=== PATIENT | female | born 1965 | race Caucasian/White ===

== ENCOUNTER 2017-02-19 13:00 | Outpatient (CLI) | payer MEDICARE, MEDICAID ==
--- NOTE | 2017-02-19 15:51 | RAD ---
CHEST TWO VIEWS: History: Dyspnea. Comparison: 05-07-16 FINDINGS: Cardiac silhouette and pulmonary vasculature unremarkable. Lungs remain hyperinflated with flattenin g of each hemidiaphragm and severe bullous change of each lung. There is no confluent airspace conso lidation, pneumothorax, or pleural fluid evident. IMPRESSION: COPD and other chronic type findings appears table. POS: [facility]
== END 2017-02-19 13:01 | disposition home or self-care (01) ==
LOC: RAD 13:00
PROVIDERS: ATTEND Internal Medicine Critical Care Medicine
DX: R06.00 Dyspnea, unspecified (principal); J44.9 Chronic obstructive pulmonary disease, unspecified
CPT/HCPCS: 71020

== ENCOUNTER 2017-02-27 11:41 | Outpatient (CLI) | payer MEDICARE, MEDICAID ==
[2017-02-27 13:04] LABS: #Eosinphils 0.1 thou/uL (0.0-0.7); #Lymphocytes 1.7 thou/uL (1.20-3.40); #Monocytes 0.5 thou/uL (0.11-0.59); #Neutrophils 2.9 thou/uL (1.40-6.50); %Basophils 0.8 % (0.0-1.0); %Eosinophils 1.4 % (0.0-10.0); %Lymphocytes 32.2 % (21.0-51.0); %Monocytes 8.9 % (0.0-10.0); Hematocrit 44.3 % (36.0-47.0); Mean Platelet Volume 7.6 fL (7.4-10.4); Red Blood Cell (RBC) Count 4.69 mill/uL (4.20-5.40); White Blood Cell (WBC) Count 5.2 thou/uL (4.8-10.8)
[2017-02-27 13:28] LABS: Anion Gap 12 mmol/L (10-20); BUN (Urea Nitrogen) 9 mg/dL (9.8-20.1); Calc. Creatinine Clearance 0 mL/min (70-130); Calcium 9.2 mg/dL (7.8-10.44); Carbon Dioxide 29 mmol/L (22-29); Chloride 104 mmol/L (98-107); Estimated GFR-MDRD 81
== END 2017-02-27 11:42 | disposition home or self-care (01) ==
LOC: LABBT 11:41
PROVIDERS: ATTEND Surgery
DX: Z01.812 Encounter for preprocedural laboratory examination (principal); K42.9 Umbilical hernia without obstruction or gangrene
CPT/HCPCS: 80048; 85025

== ENCOUNTER 2017-02-28 10:30 | Day surgery (SDC) | payer MEDICARE, MEDICAID ==
[2017-02-27 11:57] VITALS: BMI 17.4
[2017-02-28] MEDS ORDERED: Bupivacaine HCl 0.5%/Epinephrine 1:200,000/PF 30 ml Vial ONE (13:02)
[2017-02-28] MEDS ORDERED: Fentanyl 100 MCG/2 ML VIAL ONE ×2 (13:09→14:17)
[2017-02-28] MEDS ORDERED: Midazolam HCl 2 mg/2 ml Vial ONE (13:09)
[2017-02-28] MEDS ORDERED: Lidocaine 2% PF 10 ML AMP (For Epidural Use) ONE (13:31)
[2017-02-28] MEDS ORDERED: Propofol 200 MG/20 ML VIAL ONE (13:31)
[2017-02-28] MEDS ORDERED: Ondansetron HCl/PF 4 MG/2 ML Vial ONE (14:17)
[2017-02-28] MEDS ORDERED: Ondansetron HCl/PF 4 MG/2 ML Vial IVP PRN (14:19)
[2017-02-28] MEDS ORDERED: Promethazine HCl 25 MG/ML VIAL IM/IV PRN (14:19)
[2017-02-28] MEDS ORDERED: Acetaminophen/Codeine 30-300mg Tablet ONE (16:24)
--- NOTE | 2017-02-28 21:12 | OP ---
DATE OF SURGERY: 02/28/2017 PREOPERATIVE DIAGNOSIS: Umbilical hernia. POSTOPERATIVE DIAGNOSIS: Umbilical hernia. PROCEDURE: Umbilical hernia repair with mesh, Ventralex ST small. SURGEON: Jose Angel Linares MD ANESTHESIA: General. ESTIMATED BLOOD LOSS: COMPLICATIONS: None. SPECIMEN: None. FINDINGS: Umbilical hernia. TECHNIQUE: The patient was taken to the operating room. After general anesthetic was obtained, the abdomen was prepped and draped in a sterile fashion. Curved incision was made below the umbilicus. Cautery was used to dissect down to and score the fascia. Umbilical stalk was amputated exposing umbilical defect. The edges of the defect were freshened. The preperitoneal space was bluntly diss ected through the umbilical defect. The Ventralex ST small was brought into the sterile field. The underlay was placed in the preperitoneal space, its tails pulled up laterally against the posterior abdominal wall. U stitch of permanent braided suture was used to sew the tails laterally, superior ly, and inferiorly. The tails were then cut at the level of the mesh. The wound was irrigated. Lo katheryn anesthetic was applied. The umbilical stalk was tacked back down using 3-0 Vicryl. Skin was cl osed with 3-0 Vicryl, 4-0 Monocryl, and Dermabond. The patient went to recovery in stable condition . All instrument counts, needle counts, and lap counts were correct.
== END 2017-02-28 16:32 | disposition home or self-care (01) ==
LOC: SDC 10:30
PROVIDERS: ATTEND Surgery
PROC: 0WUF0JZ Supplement Abdominal Wall with Synthetic Substitute, Open Approach (ICD-10-PCS; principal; 2017-02-28)
DX: K42.9 Umbilical hernia without obstruction or gangrene (principal); J43.9 Emphysema, unspecified; J45.909 Unspecified asthma, uncomplicated; Z79.51 Long term (current) use of inhaled steroids; Z79.890 Hormone replacement therapy; Z79.899 Other long term (current) drug therapy; Z88.5 Allergy status to narcotic agent; Z88.8 Allergy status to other drugs, medicaments and biological substances; Z91.041 Radiographic dye allergy status; Z87.891 Personal history of nicotine dependence
CPT/HCPCS: 96375; J0670; J2001; J2250; J2270; J2405; J2704; J3010

== ENCOUNTER 2017-03-20 15:45 | Emergency (ER) | payer MEDICARE, MEDICAID ==
[2017-03-20 16:31] LABS: #Basophils 0.1 thou/uL (0.0-0.2); #Eosinphils 0.2 thou/uL (0.0-0.7); #Monocytes 0.6 thou/uL (0.11-0.59); #Neutrophils 3.7 thou/uL (1.40-6.50); %Basophils 0.8 % (0.0-1.0); %Eosinophils 3.3 % (0.0-10.0); %Lymphocytes 30.1 % (21.0-51.0); %Monocytes 8.6 % (0.0-10.0); Mean Platelet Volume 7.4 fL (7.4-10.4); White Blood Cell (WBC) Count 6.5 thou/uL (4.8-10.8)
--- NOTE | 2017-03-20 16:35 | RAD ---
PORTABLE CHEST ONE VIEW: 03/20/17 at 3:41 p.m. HISTORY: Chest pain. FINDINGS: Comparison made with exam of 02/19/17. The heart size is normal. Changes of bullous emphysema are again noted. No lobar consolidation, pneu mothorax or pleural effusions are identified. There is flattening of the diaphragm. An old healed fr acture of the left 7th rib is again noted. IMPRESSION: COPD. No acute process. POS: [facility]
[2017-03-20 16:55] LABS: ALT (SGPT) 12 U/L (8-55); AST (SGOT) 18 U/L (5-34); Alkaline Phosphatase 77 U/L (40-150); Anion Gap 12 mmol/L (10-20); BUN (Urea Nitrogen) 15 mg/dL (9.8-20.1); Bilirubin, Total 0.2 mg/dL (0.2-1.2); Calc. Creatinine Clearance 0 mL/min (70-130); Calcium 8.9 mg/dL (7.8-10.44); Carbon Dioxide 26 mmol/L (22-29); Chloride 105 mmol/L (98-107); Estimated GFR-MDRD 86; Protein, Total 6.9 g/dL (6.0-8.3)
[2017-03-20 17:01] LABS: Troponin I Less than 0.010 ng/mL (< 0.028)
[2017-03-20] MEDS ORDERED: methylPREDNISolone Sod Succ/PF 125 MG/2 ML VIAL ONE (17:24)
[2017-03-20] MEDS ORDERED: Water For Inject, Bacteriostat 30 ML ONE (17:25)
[2017-03-20] MEDS ORDERED: Albuterol Sulfate 1.25 MG/3 ML NEB ONE (17:27)
[2017-03-20] MEDS ORDERED: Albuterol Sulfate 2.5 mg/3 ml Neb ONE (17:27)
[2017-03-20] MEDS ORDERED: Albuterol Sulfate 2.5 mg/0.5 ml Neb ONE (17:28)
[2017-03-20] MEDS ORDERED: Ketorolac Tromethamine 30 MG/ML VIAL ONE (17:57)
== END 2017-03-20 18:26 | disposition home or self-care (01) ==
LOC: ERS 15:45
DX: J44.1 Chronic obstructive pulmonary disease with (acute) exacerbation (principal); F41.9 Anxiety disorder, unspecified; Z87.891 Personal history of nicotine dependence
CPT/HCPCS: 36415; 71010; 80053; 82553; 84484; 85025; 85379; 93005; 96374; 96375; J1885; J2930; J7611

== ENCOUNTER 2018-09-10 09:10 | Outpatient (CLI) | payer MEDICARE, MEDICAID ==
--- NOTE | 2018-09-10 09:58 | RAD ---
PA AND LATERAL VIEWS CHEST: Date: 09/10/18 HISTORY: Dyspnea. FINDINGS: Comparison made with exam of 02/19/17. The heart size is normal. The lungs are hyperexpanded with changes of COPD. Bullous change in the karey gs are again seen. Old left-sided rib fracture is redemonstrated. No lobar consolidation, pneumothora mart, or pleural effusions are identified. IMPRESSION: COPD. No acute process. POS: [facility]
== END 2018-09-10 09:11 | disposition home or self-care (01) ==
LOC: RAD 09:10
PROVIDERS: ATTEND Internal Medicine Critical Care Medicine
DX: R06.00 Dyspnea, unspecified (principal); J44.9 Chronic obstructive pulmonary disease, unspecified
CPT/HCPCS: 71046

== ENCOUNTER 2020-04-09 11:51 | Inpatient (IN) | payer MEDICARE, MEDICAID ==
[2020-04-09] MEDS ORDERED: Dexamethasone 10 MG/ML VIAL ONE (12:29)
[2020-04-09] MEDS ORDERED: Morphine 4 MG/ML VIAL ONE (12:51)
[2020-04-09] MEDS ORDERED: Ondansetron PF 4 MG/2 ML Vial ONE (12:51)
[2020-04-09] MEDS ORDERED: Guaifenesin DM 100-10/5 ML UDCUP PO PRN (13:51)
[2020-04-09] MEDS ORDERED: Acetaminophen 650 MG Suppository PR PRN (13:51)
[2020-04-09] MEDS ORDERED: Senokot S 8.6-50 MG TAB PO PRN (13:51)
[2020-04-09] MEDS ORDERED: Acetaminophen 325 MG TAB PO PRN (13:51)
[2020-04-09] MEDS ORDERED: Albuterol Sulfate 2.5 mg/3 ml Neb NEB PRN (14:02)
[2020-04-09 14:14] LABS: Troponin I 0.019 ng/mL (< 0.028)
--- NOTE | 2020-04-09 15:33 | HP ---
PRIMARY CARE PHYSICIAN: Bud Alexandra. CHIEF COMPLAINT: Cough and fever with COVID infection. HISTORY OF PRESENT ILLNESS: This is a 54-year-old white female with longstanding emphysema and asthma, seen by Dr. Drew. She reports that she was in her normal state of health until she started getting some cough and fever on Saturday. She went and got a COVID test, which came back positive. She was doing okay until yesterday when she started to have much worsening shortness of breath, chest tightness, coughing, wheezing, and her oxygen saturations started dropping at home. She got worse today and so went to the [facility] Emergency Room in [place]. There, she was found to be hypoxic into the 70s. She had a fever of 103. The patient had a CT done there, which showed a segmental pulmonary embolism on both sides. She was started on Lovenox. The patient was also noted to be febrile to 103. She was given breathing treatments there and put on oxygen. Her O2 saturations came up into the mid to high 90s. She was transferred here for further care here. She also got a dose of steroids. The patient is feeling much better. Currently, on 3 L nasal cannula. REVIEW OF SYSTEMS: CONSTITUTIONAL: See HPI. EYES: No double vision. She had a little bit of blurred vision since she got sick. ENT: No congestion or sore throat. CARDIOVASCULAR: No chest pain. No palpitations or racing heart. PULMONARY: See HPI. GASTROINTESTINAL: No abdominal pain. She did have significant diarrhea initially with COVID infection. She does start getting some nausea and vomiting. Took some Zofran, which resolved that, but caused her to get plugged up, so she is now constipated. GENITOURINARY: No dysuria or hematuria. MUSCULOSKELETAL: She has chronic arthritis pains especially worsened in her bilateral hands and knuckles since she got COVID. SKIN: No rashes or lesions, she has noted. NEUROLOGIC: No numbness, tingling, or focal weakness. PAST MEDICAL HISTORY: 1. Severe COPD, previously on chronic oxygen therapy at home, though she reports she does not take oxygen at home currently. 2. Reactive airway disease. 3. Diverticulosis with previous diverticulitis. 4. Rectovaginal fistula that eventually healed by itself. PAST SURGICAL HISTORY: 1. Umbilical hernia repair. 2. Lung collapse requiring stitching of lung. 3. Hysterectomy. PAST PSYCHIATRIC HISTORY: Of anxiety. SOCIAL HISTORY: The patient previously smoked cigarettes, quit about 11 years ago. No alcohol or illicit drugs. She lives with a roommate. She is a full code. Should she be incapacitated, her daughter would be her medical decision maker. Her daughter's name is Екатерина Wagner. FAMILY HISTORY: Mother with lung cancer. Father had COPD and esophageal cancer. ALLERGIES: 1. SYMBICORT. 2. VICODIN. 3. IODINE TOPICAL ONLY. 4. XOPENEX. CURRENT MEDICATIONS: 1. Montelukast 10 mg daily. 2. Lyrica 150 mg at bedtime. 3. Benadryl 25 mg daily. 4. Breo Ellipta one puff once a day 200/25 mcg. 5. Albuterol as needed. PHYSICAL EXAMINATION: VITAL SIGNS: Blood pressure 103/60, pulse 64, respirations 20, temperature 97.8, O2 saturation 96% on 2 L nasal cannula. GENERAL: This is a well-developed, well-nourished white female, in no acute distress. HEENT: Pupils are equal, round, and reactive to light. Oropharynx clear without lesions, erythema, or exudate. NECK: Supple. No lymphadenopathy. No thyroid nodules or enlargement. No JVD. HEART: Regular rate and rhythm. No murmurs, rubs, or gallops. LUNGS: With bilateral expiratory wheezes. Decent air movement throughout. No increased work of breathing currently. ABDOMEN: Soft, nontender to palpation. Normoactive bowel sounds. No hepatosplenomegaly or other masses. EXTREMITIES: No clubbing, cyanosis, or edema. Good peripheral pulses. SKIN: No rashes or lesions noted. NEUROLOGIC: The patient moves all extremities equally. No facial droop. PSYCHIATRIC: Alert and oriented x3. Normal mood and affect. LABORATORY DATA: Shows negative lactic acid. Elevated procalcitonin and C-reactive protein. Negative troponin. Negative brain natriuretic peptide. CMP is notable for a potassium of 3.4, calcium 8, total protein of 5.8. The rest was normal. D-dimer was elevated at 1.12. PT and INR were normal. CBC had a white blood cell count of 4.8, normal hemoglobin and hematocrit, platelets were 146. The rest was normal. CTA of the chest done at the outside emergency room shows bilateral segmental pulmonary emboli. There is also spiculated pulmonary nodule in the left upper lobe measuring 1.8 cm. Small focal consolidation within bilateral lower lobes, possibly pneumonia infarct or atelectasis. A 9 mm pulmonary nodule in the right middle lobe and a suggested right breast nodule of 1.2 cm and marked emphysema. ASSESSMENT: 1. Bilateral pulmonary emboli. This is likely due to her COVID infection. We will give full-dose Lovenox and eventually need to be transitioned over to oral anticoagulants. Right now, she is having some hypoxia from it, but no large saddle embolism or anything that would cause cardiac strain. I will watch her on the telemetry floor though due to the pulmonary embolism. 2. COVID-19 infection. The patient now with increased oxygen requirement. We will continue dexamethasone and we will start remdesivir. 3. Chronic obstructive pulmonary disease exacerbation, now with her hypoxia. We will put the patient on nebs and continue steroids. 4. [id number] respiratory failure with hypoxia. We will keep on oxygen for now and wean as tolerated. 5. Gastrointestinal prophylaxis. The patient is on Pepcid twice a day. 6. Deep venous thrombosis prophylaxis. The patient is already on Lovenox. I will go ahead and check an ultrasound of bilateral lower extremities to see if she has a deep venous thrombosis. 7. Spiculated pulmonary nodule, the right lung nodule, I believe is an older nodule, but the spiculated lesion on the left needs to be evaluated by Pulmonology. She may be needing a biopsy once she has gotten over her acute illness. I am consulting Pulmonology on this patient. 8. Code status: The patient is a full code. Should she be incapacitated, her daughter would be her medical decision maker. Job ID: [id number]
[2020-04-09] MEDS ORDERED: Enoxaparin Sodium 60 MG/0.6 ML SYRINGE SC SCH ×2 (15:45→21:00)
[2020-04-09] MEDS ORDERED: Albuterol 200 PUFF (6.7GM INHALER) INH PRN (15:53)
[2020-04-09] MEDS ORDERED: Pharmacy to Dose REMDESIVIR IVPB PRN (20:51)
[2020-04-09] MEDS: Albuterol 200 PUFF (6.7GM INHALER) INH SCH ×2 (21:08→21:14)
[2020-04-09] MEDS: Mometasone 100 MCG/PUFF (1 INHALER) INH SCH (21:13)
[2020-04-09] MEDS: Enoxaparin Sodium 60 MG/0.6 ML SYRINGE SC SCH (21:14)
[2020-04-09] MEDS: Pregabalin 75 MG CAP PO SCH (21:14)
[2020-04-09] MEDS: Famotidine 20 MG TAB PO SCH (21:14)
[2020-04-09] MEDS ORDERED: Acetaminophen/Codeine 30-300mg Tablet PO PRN (21:49)
[2020-04-09] MEDS ORDERED: diphenhydrAMINE 25 MG CAP PO SCH (22:00)
--- NOTE | 2020-04-09 22:32 | CON ---
DATE OF CONSULTATION: 04/09/2020 CHIEF COMPLAINT: COVID pneumonia and pulmonary embolus. HISTORY OF PRESENT ILLNESS: Ms. Clinton is a 54-year-old female followed longitudinally by Dr. James Drew. She has a history of moderate to severe COPD with fairly severe asthma. Her asthma is controlled predominantly with Breo and as needed albuterol, either inhaler or nebulizer. She states the normal trigger to her asthma is infections, although also exposure to chemical agents, perfumes and other strong irritants. She states that she was in her usual state of health until early this week when she developed a cough and fever. She was seen at a local clinic and her COVID test returned positive. Yesterday, she began to note worsening shortness of breath associated with chest tightness as well as ongoing cough, although no sputum. Her oxygen saturations were reportedly as low as 70 and she had fever of 103.2. She presented to [facility] emergency room and following a series of tests, she had a CAT scan of the chest demonstrating bilateral pulmonary emboli at the segmental level. She was placed on Lovenox. She was given breathing treatments and steroids and was transferred to [place] for intensified therapy. The patient denies other COVID symptoms at this time. She is more concerned about her inability to get nebulized therapy than almost anything else. She is also asking for a change in diet from a low-sodium to regular. She denies any pain or asymmetric swelling in her lower extremities. She does not have a past history of DVT or pulmonary embolus. She feels that she is a little less active in the past couple days, but otherwise no known risk factors for pulmonary embolic/DVT. SOCIAL HISTORY: The patient is a 54-year-old female. She quit smoking about 11 years ago. She does not have alcohol history. She reports intolerance to Symbicort (although tolerate Breo), Vicodin, topical iodine, and Xopenex (although she tolerate albuterol). HOME MEDICATIONS: 1. Singulair 10 daily. 2. Lyrica 150 at bedtime. 3. Benadryl 25 daily. 4. Breo 200/25 daily. 5. Albuterol metered-dose inhaler and nebulizer as needed. PAST MEDICAL HISTORY: Remarkable for COPD with a reactive component. She has a history of diverticulosis with bouts of diverticulitis. She has had a spontaneous pneumothorax which required over-sew of the leak. REVIEW OF SYSTEMS: Remarkable as above. PHYSICAL EXAMINATION: VITAL SIGNS: Blood pressure ranging 98/64 to 110/68. She has been afebrile since arrival here. Respiratory rate is 16. Saturation 98 on 2 L nasal cannula. Height 5 feet 2 inches, weight 119 with BMI of 21. GENERAL: She is in only mild distress. She is alert, oriented, and appropriate. HEENT: Shows no icterus. Oropharynx shows no Tata. NECK: Shows no adenopathy or JVD. LUNGS: Quiet terminal wheezes and occasional rhonchi, but no rales or rubs. HEART: Regular rate and rhythm. ABDOMEN: Soft. There is no organomegaly. Bowel sounds are normal. She has no guarding. EXTREMITIES: Show no cyanosis, clubbing, cords, or tenderness. LABORATORY DATA: Here we have a troponin of 0.19. Other lab from [place] is not available to me at this time. I have reviewed the reports of scans, but I have not had the opportunity to see them myself. The patient reports that she has a nodule which was not apparently known before, both in the lung and possibly one in the breast. IMPRESSION: 1. Coronavirus disease pneumonia. 2. Deep venous thrombosis, presumed secondary to coronavirus disease and hypercoagulable state. 3. Chronic obstructive pulmonary disease. 4. History of reactive airways component. 5. Pulmonary nodule. 6. Breast nodule. RECOMMENDATIONS: At this point, I would continue current therapies including full dose anticoagulation with Lovenox. We can then convert her to a novel agent such as Eliquis with expectation that she is going to need this about 4 months. We will provide remdesivir and plasma and supplemental oxygen as needed. With regard to the nodule in the breast and in the lung, I would recommend that the evaluation of these be deferred until she gets out of the hospital and can be coordinated by Dr. Drew in the office. It was certainly be important to repeat the scans and look for comparison over time. The breast would seem to be more likely abnormal at least in the setting of other radiographic findings, although she also has a past smoking history and associated risk of lung cancer. I would not pursue biopsy and evaluation of any of these on this hospitalization. I expect her to be in the hospital for several days with followup in the Pulmonary Clinic with Dr. Drew as discussed above. Thank you for this consultation. Job ID: [id number]
[2020-04-10] MEDS: Albuterol 200 PUFF (6.7GM INHALER) INH SCH ×3 (05:03→17:15)
[2020-04-10 05:38] LABS: #Lymphocytes 0.7 thou/uL (1.20-3.40); #Monocytes 0.4 thou/uL (0.11-0.59); %Eosinophils 0.1 % (0.0-10.0); %Lymphocytes 21.4 % (21.0-51.0); %Monocytes 12.2 % (0.0-10.0); %Neutrophils 66.3 % (42.0-75.0); Hemoglobin 11.5 g/dL (12.0-16.0); Mean Corpuscular HGB CONC 32.1 g/dL (32.0-36.0); Mean Corpuscular Hemoglobin 29.2 pg (27.0-31.0); Mean Corpuscular Volume 90.9 fL (78.0-98.0); Mean Platelet Volume 9.5 fL (7.4-10.4); Platelet Count 127 thou/uL (130-400); RBC Distribution Width 12.1 % (11.5-14.5); Red Blood Cell (RBC) Count 3.96 mill/uL (4.20-5.40)
[2020-04-10] MEDS ORDERED: Enoxaparin Sodium 60 MG/0.6 ML SYRINGE SC SCH (06:00)
[2020-04-10 06:02] LABS: Anion Gap 11 mmol/L (10-20); BUN (Urea Nitrogen) 10 mg/dL (9.8-20.1); Calc. Creatinine Clearance 83 mL/min (70-130); Calcium 7.7 mg/dL (7.8-10.44); Carbon Dioxide 30 mmol/L (22-29); Chloride 104 mmol/L (98-107); Estimated GFR-MDRD Greater than 90; Glucose 120 mg/dL (70-105); Potassium 4.2 mmol/L (3.5-5.1); Sodium 141 mmol/L (136-145)
[2020-04-10] MEDS: Estradiol 1 MG TAB PO SCH (08:54)
[2020-04-10] MEDS: Mometasone 100 MCG/PUFF (1 INHALER) INH SCH ×2 (08:54→21:05)
[2020-04-10] MEDS: Enoxaparin Sodium 60 MG/0.6 ML SYRINGE SC SCH ×2 (08:54→21:05)
[2020-04-10] MEDS: Famotidine 20 MG TAB PO SCH ×2 (08:55→21:04)
[2020-04-10] MEDS: Dexamethasone 4 MG TAB PO SCH (08:55)
--- NOTE | 2020-04-10 15:33 | PRG ---
DATE OF SERVICE: 04/10/2020 SUBJECTIVE: Ms. Clinton states that she is feeling a little bit better. She is able to take a deeper breath, and fortunately, her dyspnea is controlled with inhalers due to the restriction of nebulizers due to COVID. She has not had any nausea or vomiting. She has had a very rare cough with some dirty sputum, but no objective fever or chills. Remdesivir has not been available due to a shortage in the pharmacy. PHYSICAL EXAMINATION: VITAL SIGNS: Blood pressure 98/56 to as much as 117/64. She is on nasal cannula 1.5 L. She is afebrile. Heart rate is 63, respiratory rate 16, saturation 97%. GENERAL: She is alert, oriented. HEENT: She has no adenopathy or JVD. She has no oral Tata. LUNGS: Show a few rhonchi maneuvers. She is not using accessory muscles. HEART: Regular rate and rhythm. ABDOMEN: Soft. There is no organomegaly. EXTREMITIES: She has no edema. LABORATORY DATA: White count 3000, hemoglobin is 11.5 with hematocrit of 36, and platelet count of 127,000. Chemistry panel includes sodium 141, potassium 4.2, chloride 104, CO2 is 30, BUN 10, and creatinine 0.6. IMPRESSION: 1. COVID pneumonia, relatively stable. She did not receive remdesivir due to pharmacy shortage. 2. Pulmonary embolus, on full-dose Lovenox. She could probably be converted to oral Eliquis or equivalent tomorrow to follow up in the office with Dr. Drew. 3. Severe chronic obstructive pulmonary disease with exacerbation, probably secondary to COVID. 4. History of reactive airways component. 5. Abnormal chest x-ray. I would recommend that she have a followup with Dr. Drew, at which time she can have a repeat scan in comparison to the ones done at outlying facility. Decision can then be made whether it is appropriate to temporarily get her off anticoagulation for biopsy or other procedures. PLAN: We will continue current therapy with expectation of possible conversion to Eliquis tomorrow and discharge to follow up with Dr. Drew. Job ID: [id number]
[2020-04-10] MEDS ORDERED: Benzonatate 100 MG CAP PO SCH (17:00)
--- NOTE | 2020-04-10 17:10 | PDOC.HOSPP ---
- Subjective Encounter Date: 04/10/20 Encounter Time: 12:30 Subjective: Seen for follow-up regarding her on chronic hypoxic respiratory failure. She reports cough. No sputum. - Objective Vital Signs & Weight: Vital Signs (12 hours) Temp Pulse Resp BP Pulse Ox 04/10/20 16:15 97.9 F 67 20 97/57 L 96 04/10/20 11:48 97.1 F L 63 16 98/56 L 97 04/10/20 08:30 96.3 F L 62 24 H 117/64 97 Weight Weight 119 lb 11.2 oz I&O: 04/09/20 04/10/20 04/11/20 06:59 06:59 06:59 Intake Total 240 Output Total 850 Balance -610 Result Diagrams: 04/10/20 04:53 04/10/20 04:53 Additional Labs: Labs and MAR reviewed by me EKG Reviewed by me: Yes (Telemetry shows normal sinus rhythm) Hospitalist ROS - Review of Systems Constitutional: reports: weakness. denies: fever, chills, sweats, malaise Respiratory: reports: cough, dry, SOB with excertion, wheezing. denies: shortness of breath, hemoptysis, pleuritic pain, sputum Genitourinary: denies: dysuria, frequency, incontinence, hematuria, retention - Medication Medications: Active Medications Generic Name Dose Route Start Last Admin Trade Name Freq PRN Reason Stop Dose Admin Acetaminophen 650 mg 04/09/20 13:51 04/09/20 17:27 Acetaminophen 325 Mg Tab PO 650 mg Q4H PRN Administration Headache/Fever/Mild Pain (1-3) Acetaminophen/Codeine Phosphate 1 tab 04/09/20 21:49 04/10/20 00:03 Acetaminophen/Codeine 30-300mg Tablet PO 04/10/20 21:50 1 tab ONE PRN Administration Moderate to Severe Pain (6-10) Albuterol Sulfate 2 puff 04/09/20 19:00 04/10/20 11:51 Albuterol 200 Puff (6.7gm Inhaler) INH 2 puff [id number] SARAH Administration Dexamethasone 6 mg 04/10/20 08:00 04/10/20 08:55 Dexamethasone 4 Mg Tab PO 04/18/20 08:01 6 mg QAM-WM SARAH Administration Enoxaparin Sodium 60 mg 04/09/20 21:00 04/10/20 08:54 Enoxaparin Sodium 60 Mg/0.6 Ml Syringe SC 60 mg BID SARAH Administration Estradiol 1 mg 04/10/20 09:00 04/10/20 08:54 Estradiol 1 Mg Tab PO 1 mg QAM SARAH Administration Famotidine 20 mg 04/09/20 21:00 04/10/20 08:55 Famotidine 20 Mg Tab PO 20 mg BID SARAH Administration Mometasone Furoate 100 mcg 04/09/20 21:00 04/10/20 08:54 Mometasone 100 Mcg/Puff (1 Inhaler) INH 100 mcg BID SARAH Administration Pregabalin 75 mg 04/09/20 21:00 04/09/20 21:14 Pregabalin 75 Mg Cap PO 75 mg QPM SARAH Administration - Exam General Appearance: awake alert Eye: anicteric sclera ENT: moist mucosa Neck: supple Heart: RRR Respiratory: no rales, no ronchi, wheezes Gastrointestinal: soft, non-tender Skin: no rashes Psychiatric: normal affect, normal behavior Hosp A/P (1) Acute on chronic respiratory failure with hypoxia Code(s): J96.21 - ACUTE AND CHRONIC RESPIRATORY FAILURE WITH HYPOXIA Status: Acute (2) COVID-19 virus infection Code(s): U07.1 - COVID-19 Status: Acute (3) Pulmonary embolism Code(s): I26.99 - OTHER PULMONARY EMBOLISM WITHOUT ACUTE COR PULMONALE Status: Acute (4) Pulmonary nodule Code(s): R91.1 - SOLITARY PULMONARY NODULE Status: Acute (5) COPD exacerbation Code(s): J44.1 - CHRONIC OBSTRUCTIVE PULMONARY DISEASE W (ACUTE) EXACERBATION Status: Acute - Plan Continue dexamethasone. Start vitamin C and zinc. Follow inflammatory markers. Remdesivir has been ordered. Continue therapeutic Lovenox for now, switch to novel oral anticoagulants when c linically stable. Tessalon for cough. Continue bronchodilators, oxygen. Further work-up of lung nodule as outpatient.
[2020-04-10] MEDS ORDERED: Ascorbic Acid 500 mg Chewable Tablet PO SCH (17:30)
[2020-04-10] MEDS ORDERED: Zinc Sulfate 220 MG CAP PO SCH (17:30)
[2020-04-10] MEDS: Ondansetron ODT 4 MG TAB PO PRN (18:32)
[2020-04-10] MEDS: Benzonatate 100 MG CAP PO SCH ×2 (21:02→21:05)
[2020-04-10] MEDS: Pregabalin 75 MG CAP PO SCH (21:04)
[2020-04-10] MEDS: Montelukast Sodium 10 mg Tablet PO SCH (21:04)
[2020-04-10] MEDS: Ondansetron PF 4 MG/2 ML Vial IVP PRN (21:06)
[2020-04-10] MEDS: Promethazine HCl 12.5 MG in Sodium Chloride 0.9% 50 ML IVPB PRN (23:35)
[2020-04-11] MEDS: Albuterol 200 PUFF (6.7GM INHALER) INH SCH ×5 (02:01→18:04)
[2020-04-11] MEDS: Famotidine 20 MG TAB PO SCH ×2 (07:28→20:03)
[2020-04-11] MEDS: Ascorbic Acid 500 mg Chewable Tablet PO SCH ×2 (07:28→18:05)
[2020-04-11] MEDS: Zinc Sulfate 220 MG CAP PO SCH ×2 (07:28→16:03)
[2020-04-11] MEDS: Enoxaparin Sodium 60 MG/0.6 ML SYRINGE SC SCH ×2 (07:29→20:03)
[2020-04-11] MEDS: Estradiol 1 MG TAB PO SCH (07:29)
[2020-04-11] MEDS: Dexamethasone 4 MG TAB PO SCH (07:29)
[2020-04-11] MEDS: Mometasone 100 MCG/PUFF (1 INHALER) INH SCH ×2 (07:30→20:03)
[2020-04-11] MEDS: Benzonatate 100 MG CAP PO SCH (07:30)
[2020-04-11 07:38] LABS: #Lymphocytes 0.8 thou/uL (1.20-3.40); #Neutrophils 7.7 thou/uL (1.40-6.50); %Basophils 0.1 % (0.0-1.0); %Lymphocytes 8.3 % (21.0-51.0); %Monocytes 10.4 % (0.0-10.0); %Neutrophils 81.1 % (42.0-75.0); Hemoglobin 12.2 g/dL (12.0-16.0); Mean Corpuscular HGB CONC 32.6 g/dL (32.0-36.0); Mean Corpuscular Hemoglobin 29.7 pg (27.0-31.0); Mean Corpuscular Volume 91.2 fL (78.0-98.0); Mean Platelet Volume 9.1 fL (7.4-10.4); Platelet Count 158 thou/uL (130-400); Red Blood Cell (RBC) Count 4.11 mill/uL (4.20-5.40); White Blood Cell (WBC) Count 9.5 thou/uL (4.8-10.8)
[2020-04-11 08:00] LABS: BUN (Urea Nitrogen) 11 mg/dL (9.8-20.1); CRP (Inflammatory) 1.28 mg/dL (= or < 0.5); Calc. Creatinine Clearance 78 mL/min (70-130); Calcium 7.7 mg/dL (7.8-10.44); Estimated GFR-MDRD 88; Glucose 109 mg/dL (70-105)
[2020-04-11 08:09] LABS: Anion Gap 15 mmol/L (10-20); Carbon Dioxide 34 mmol/L (22-29); Chloride 102 mmol/L (98-107); Potassium 3.6 mmol/L (3.5-5.1); Sodium 147 mmol/L (136-145)
[2020-04-11 09:18] LABS: ALT (SGPT) 21 U/L (8-55); AST (SGOT) 47 U/L (5-34); Albumin 3.2 g/dL (3.5-5.0); Alkaline Phosphatase 53 U/L (40-110); Bilirubin, Direct 0.1 mg/dL (0.1-0.3); Bilirubin, Total 0.2 mg/dL (0.2-1.2); Protein, Total 5.6 g/dL (6.0-8.3)
--- NOTE | 2020-04-11 11:40 | PRG ---
DATE OF SERVICE: 04/11/2020 SUBJECTIVE: The patient is still having issues with COVID infection, mainly complaining of shortness of breath and inability to use nebulizer treatments. OBJECTIVE: VITAL SIGNS: Temperature 98.6, pulse 68, respirations 16, O2 saturation 97% on 2 L, blood pressure 99/54. HEENT: Unremarkable. NECK: No adenopathy or JVD. CHEST: Clear with a few crackles in the bases. CARDIAC: S1, S2. Regular. ABDOMEN: Soft. EXTREMITIES: No edema. ASSESSMENT: 1. COVID-19 pneumonia. 2. Pulmonary embolism. PLAN: 1. Add spacer for metered-dose inhalers in the past. 2. Continue with dexamethasone and anticoagulation. Job ID: [id number]
--- NOTE | 2020-04-11 12:41 | PDOC.HOSPP ---
- Subjective Encounter Date: 04/11/20 Encounter Time: 08:00 Subjective: Patient seen for follow-up regarding hypoxic respiratory failure. She reports feeling better, but had nausea. Nausea responded well to Phenergan. She does not want to use Tessalon or zinc. - Objective Vital Signs & Weight: Vital Signs (12 hours) Temp Pulse Resp BP BP Pulse Ox 04/11/20 07:43 98.6 F 68 16 99/54 L 97 04/11/20 04:20 97.8 F 75 20 98/54 L 93 L Weight Admit Weight 119 lb 11.2 oz Weight 119 lb 11.2 oz I&O: 04/10/20 04/11/20 04/12/20 06:59 06:59 06:59 Intake Total 240 1430 Output Total 850 500 Balance -610 930 Result Diagrams: 04/11/20 07:17 04/11/20 07:17 Additional Labs: Accuchecks 04/10/20 21:27 POC Glucose 113 H I reviewed patient's labs and MAR EKG Reviewed by me: Yes (Normal sinus rhythm on telemetry) Hospitalist ROS - Review of Systems Constitutional: reports: weakness. denies: fever, chills, sweats, malaise Respiratory: reports: cough, dry. denies: shortness of breath, hemoptysis, SOB with excertion, pleuritic pain, sputum, wheezing Cardiovascular: denies: chest pain, palpitations, orthopnea, paroxysmal noc. dyspnea, edema, light headedness - Medication Medications: Active Medications Generic Name Dose Route Start Last Admin Trade Name Freq PRN Reason Stop Dose Admin Acetaminophen 650 mg 04/09/20 13:51 04/09/20 17:27 Acetaminophen 325 Mg Tab PO 650 mg Q4H PRN Administration Headache/Fever/Mild Pain (1-3) Albuterol Sulfate 2 puff 04/09/20 19:00 04/11/20 12:33 Albuterol 200 Puff (6.7gm Inhaler) INH 2 puff [id number] SAARH Administration Ascorbic Acid 1,000 mg 04/11/20 09:00 04/11/20 07:28 Ascorbic Acid 500 Mg Chewable Tablet PO 1,000 mg DAILY SARAH Administration Benzonatate 100 mg 04/10/20 21:00 04/11/20 07:30 Benzonatate 100 Mg Cap PO Not Given TID SARAH Dexamethasone 6 mg 04/10/20 08:00 04/11/20 07:29 Dexamethasone 4 Mg Tab PO 04/18/20 08:01 6 mg QAM-WM SARAH Administration Enoxaparin Sodium 60 mg 04/09/20 21:00 04/11/20 07:29 Enoxaparin Sodium 60 Mg/0.6 Ml Syringe SC 60 mg BID SARAH Administration Estradiol 1 mg 04/10/20 09:00 04/11/20 07:29 Estradiol 1 Mg Tab PO 1 mg QAM SARAH Administration Famotidine 20 mg 04/09/20 21:00 04/11/20 07:28 Famotidine 20 Mg Tab PO 20 mg BID SARAH Administration Promethazine HCl 12.5 mg/ 50.5 mls @ 202 mls/hr 04/10/20 23:01 04/10/20 23:35 Sodium Chloride IVPB 50.5 mls Q6H PRN Administration Nausea/Vomiting Mometasone Furoate 100 mcg 04/09/20 21:00 04/11/20 07:30 Mometasone 100 Mcg/Puff (1 Inhaler) INH 100 mcg BID SARAH Administration Montelukast Sodium 10 mg 04/10/20 21:00 04/10/20 21:04 Montelukast Sodium 10 Mg Tablet PO 10 mg HS SARAH Administration Ondansetron HCl 4 mg 04/09/20 13:51 04/10/20 18:32 Ondansetron Odt 4 Mg Tab PO 4 mg Q6H PRN Administration Nausea/Vomiting Ondansetron HCl 4 mg 04/09/20 13:51 04/10/20 21:06 Ondansetron Pf 4 Mg/2 Ml Vial IVP 4 mg Q6H PRN Administration Nausea/Vomiting Pregabalin 75 mg 04/09/20 21:00 04/10/20 21:04 Pregabalin 75 Mg Cap PO 75 mg QPM SARAH Administration Zinc Sulfate 220 mg 04/11/20 09:00 04/11/20 07:28 Zinc Sulfate 220 Mg Cap PO 220 mg DAILY SARAH Administration - Exam General Appearance: awake alert Eye: anicteric sclera ENT: normocephalic atraumatic, moist mucosa Neck: supple Heart: RRR Respiratory: CTAB Gastrointestinal: soft, non-tender Extremities: no edema Skin: no rashes Psychiatric: normal affect Hosp A/P (1) Acute on chronic respiratory failure with hypoxia Code(s): J96.21 - ACUTE AND CHRONIC RESPIRATORY FAILURE WITH HYPOXIA Status: Acute (2) COVID-19 virus infection Code(s): U07.1 - COVID-19 Status: Acute (3) Pulmonary embolism Code(s): I26.99 - OTHER PULMONARY EMBOLISM WITHOUT ACUTE COR PULMONALE Status: Acute (4) Pulmonary nodule Code(s): R91.1 - SOLITARY PULMONARY NODULE Status: Acute (5) COPD exacerbation Code(s): J44.1 - CHRONIC OBSTRUCTIVE PULMONARY DISEASE W (ACUTE) EXACERBATION Status: Acute - Plan Patient is on dexamethasone and vitamin C. Will follow inflammatory markers. Remdesivir has been ordered, currently on backorder. Continue therapeutic Lovenox for now for pulmonary embolism. Continue bronchodilators, oxygen. Further work-up of lung nodule as outpatient.
[2020-04-11] MEDS: REMDESIVIR (EUA) 200 MG in Sodium Chloride 0.9% 250 ML 210 ML IV SCH ×2 (14:39→16:02)
[2020-04-11] MEDS: Pregabalin 75 MG CAP PO SCH (20:03)
[2020-04-11] MEDS: diphenhydrAMINE 25 MG CAP PO SCH (20:03)
[2020-04-11] MEDS: Montelukast Sodium 10 mg Tablet PO SCH (20:03)
[2020-04-11] MEDS ORDERED: Lorazepam 0.5 MG TAB PO SCH (22:45)
[2020-04-12] MEDS: Albuterol 200 PUFF (6.7GM INHALER) INH SCH ×4 (01:58→17:46)
[2020-04-12] MEDS: Ondansetron PF 4 MG/2 ML Vial IVP PRN (04:57)
[2020-04-12 05:05] LABS: #Lymphocytes 0.9 thou/uL (1.20-3.40); #Neutrophils 5.4 thou/uL (1.40-6.50); %Basophils 0.1 % (0.0-1.0); %Eosinophils 0.1 % (0.0-10.0); %Neutrophils 73.9 % (42.0-75.0); Mean Corpuscular HGB CONC 31.8 g/dL (32.0-36.0); Mean Corpuscular Hemoglobin 28.8 pg (27.0-31.0); Mean Corpuscular Volume 90.9 fL (78.0-98.0); Mean Platelet Volume 9.6 fL (7.4-10.4); Platelet Count 171 thou/uL (130-400); Red Blood Cell (RBC) Count 4.16 mill/uL (4.20-5.40); White Blood Cell (WBC) Count 7.3 thou/uL (4.8-10.8)
[2020-04-12 05:41] LABS: ALT (SGPT) 39 U/L (8-55); AST (SGOT) 77 U/L (5-34); Albumin 3.2 g/dL (3.5-5.0); Alkaline Phosphatase 52 U/L (40-110); Anion Gap 13 mmol/L (10-20); BUN (Urea Nitrogen) 14 mg/dL (9.8-20.1); Bilirubin, Total 0.2 mg/dL (0.2-1.2); Calc. Creatinine Clearance 85 mL/min (70-130); Carbon Dioxide 34 mmol/L (22-29); Chloride 101 mmol/L (98-107); Estimated GFR-MDRD Greater than 90; Globulin 2.4 g/dL (2.4-3.5); Glucose 97 mg/dL (70-105); Potassium 3.8 mmol/L (3.5-5.1); Protein, Total 5.6 g/dL (6.0-8.3); Sodium 144 mmol/L (136-145)
[2020-04-12] MEDS: Promethazine HCl 12.5 MG in Sodium Chloride 0.9% 50 ML IVPB PRN (06:07)
[2020-04-12] MEDS: Enoxaparin Sodium 60 MG/0.6 ML SYRINGE SC SCH ×2 (07:15→21:55)
[2020-04-12] MEDS: Dexamethasone 4 MG TAB PO SCH (07:16)
[2020-04-12] MEDS: Estradiol 1 MG TAB PO SCH (07:16)
[2020-04-12] MEDS: Famotidine 20 MG TAB PO SCH ×2 (07:16→21:55)
[2020-04-12] MEDS: Mometasone 100 MCG/PUFF (1 INHALER) INH SCH ×2 (07:17→22:00)
[2020-04-12] MEDS: Ascorbic Acid 500 mg Chewable Tablet PO SCH (07:58)
[2020-04-12] MEDS ORDERED: Ondansetron PF 4 MG/2 ML Vial IVP SCH (08:15)
[2020-04-12] MEDS ORDERED: Sodium Chloride 0.65% Nasal 44 ML BOT EA NARE PRN (09:35)
[2020-04-12] MEDS ORDERED: diphenhydrAMINE 50 MG/ML VIAL IVP SCH (09:45)
[2020-04-12] MEDS ORDERED: REMDESIVIR (EUA) 100 MG in Sodium Chloride 0.9% 250 ML 230 ML IV SCH (14:00)
[2020-04-12] MEDS: Ondansetron ODT 8 MG TAB SL SCH ×3 (14:15→22:11)
[2020-04-12] MEDS: diphenhydrAMINE 50 MG/ML VIAL IVP PRN (16:19)
--- NOTE | 2020-04-12 16:38 | PDOC.HOSPP ---
- Subjective Encounter Date: 04/12/20 Encounter Time: 08:30 Subjective: Patient seen for follow-up regarding acute hypoxic respiratory failure. She reports severe nausea. She denies fevers or chills. - Objective Vital Signs & Weight: Vital Signs (12 hours) Temp Pulse Resp BP Pulse Ox 04/12/20 12:35 98.6 F 68 16 110/82 96 04/12/20 07:30 97.8 F 64 18 109/63 94 L Weight Admit Weight 119 lb 11.2 oz Weight 119 lb 11.2 oz I&O: 04/11/20 04/12/20 04/13/20 06:59 06:59 06:59 Intake Total 1430 1200 Output Total 500 Balance 930 1200 Result Diagrams: 04/12/20 04:40 04/12/20 04:40 Additional Labs: Labs and MAR reviewed by me EKG Reviewed by me: Yes (Telemetry shows normal sinus rhythm) Hospitalist ROS - Review of Systems Respiratory: reports: cough, dry. denies: shortness of breath, hemoptysis, SOB with excertion, pleuritic pain, sputum, wheezing Gastrointestinal: reports: nausea, other. denies: vomiting, abdominal pain, diarrhea, constipation, melena, hematochezia - Medication Medications: Active Medications Generic Name Dose Route Start Last Admin Trade Name Freq PRN Reason Stop Dose Admin Acetaminophen 650 mg 04/09/20 13:51 04/09/20 17:27 Acetaminophen 325 Mg Tab PO 650 mg Q4H PRN Administration Headache/Fever/Mild Pain (1-3) Albuterol Sulfate 2 puff 04/09/20 19:00 04/12/20 12:56 Albuterol 200 Puff (6.7gm Inhaler) INH 2 puff [id number] SARAH Administration Ascorbic Acid 1,000 mg 04/11/20 09:00 04/12/20 07:58 Ascorbic Acid 500 Mg Chewable Tablet PO Not Given DAILY SARAH Dexamethasone 6 mg 04/10/20 08:00 04/12/20 07:16 Dexamethasone 4 Mg Tab PO 04/18/20 08:01 6 mg QAM-WM SARAH Administration Diphenhydramine HCl 25 mg 04/11/20 21:00 04/11/20 20:03 Diphenhydramine 25 Mg Cap PO 25 mg HS SARAH Administration Diphenhydramine HCl 25 mg 04/12/20 13:56 04/12/20 16:19 Diphenhydramine 50 Mg/Ml Vial IVP 25 mg Q6H PRN Administration Nausea Enoxaparin Sodium 60 mg 04/09/20 21:00 04/12/20 07:15 Enoxaparin Sodium 60 Mg/0.6 Ml Syringe SC 60 mg BID SARAH Administration Estradiol 1 mg 04/10/20 09:00 04/12/20 07:16 Estradiol 1 Mg Tab PO 1 mg QAM SARAH Administration Famotidine 20 mg 04/09/20 21:00 04/12/20 07:16 Famotidine 20 Mg Tab PO 20 mg BID SARAH Administration Promethazine HCl 12.5 mg/ 50.5 mls @ 202 mls/hr 04/10/20 23:01 04/12/20 06:07 Sodium Chloride IVPB 50.5 mls Q6H PRN Administration Nausea/Vomiting Mometasone Furoate 100 mcg 04/09/20 21:00 04/12/20 07:17 Mometasone 100 Mcg/Puff (1 Inhaler) INH 100 mcg BID SARAH Administration Montelukast Sodium 10 mg 04/10/20 21:00 04/11/20 20:03 Montelukast Sodium 10 Mg Tablet PO 10 mg HS SARAH Administration Ondansetron HCl 4 mg 04/09/20 13:51 04/10/20 18:32 Ondansetron Odt 4 Mg Tab PO 4 mg Q6H PRN Administration Nausea/Vomiting Ondansetron HCl 4 mg 04/09/20 13:51 04/12/20 04:57 Ondansetron Pf 4 Mg/2 Ml Vial IVP 4 mg Q6H PRN Administration Nausea/Vomiting Ondansetron HCl 8 mg 04/12/20 13:00 04/12/20 14:15 Ondansetron Odt 8 Mg Tab SL 8 mg QID SARAH Administration Pregabalin 75 mg 04/09/20 21:00 04/11/20 20:03 Pregabalin 75 Mg Cap PO 75 mg QPM SARAH Administration Sodium Chloride 0 ml 04/12/20 09:35 04/12/20 10:21 Sodium Chloride 0.65% Nasal 44 Ml Bot EA NARE 1 spray TID PRN Administration Nasal Congestion - Exam General Appearance: awake alert Eye: anicteric sclera ENT: moist mucosa Neck: supple Heart: RRR Respiratory: CTAB, no wheezes Gastrointestinal: soft, non-tender Psychiatric: normal affect, normal behavior Hosp A/P (1) Acute on chronic respiratory failure with hypoxia Code(s): J96.21 - ACUTE AND CHRONIC RESPIRATORY FAILURE WITH HYPOXIA Status: Acute (2) COVID-19 virus infection Code(s): U07.1 - COVID-19 Status: Acute (3) Pulmonary embolism Code(s): I26.99 - OTHER PULMONARY EMBOLISM WITHOUT ACUTE COR PULMONALE Status: Acute (4) Pulmonary nodule Code(s): R91.1 - SOLITARY PULMONARY NODULE Status: Acute (5) COPD exacerbation Code(s): J44.1 - CHRONIC OBSTRUCTIVE PULMONARY DISEASE W (ACUTE) EXACERBATION Status: Acute - Plan Continue dexamethasone and vitamin C. Will follow inflammatory markers. Patient refused remdesivir because she was worried about nausea. Continue therapeutic Lovenox for pulmonary embolism. Continue bronchodilators, oxygen. Further work-up of lung nodule as outpatient. Patient tried Zofran and Phenergan with minimal relief. She reports that Benadryl works better. We will start patient on as needed Benadryl. Patient reportedly does not use oxygen at home. She may need home oxygen as well as home health at the time of discharge.
[2020-04-12] MEDS: diphenhydrAMINE 25 MG CAP PO SCH ×2 (21:55→23:03)
[2020-04-12] MEDS: Montelukast Sodium 10 mg Tablet PO SCH (21:56)
[2020-04-12] MEDS: Pregabalin 75 MG CAP PO SCH (21:57)
--- NOTE | 2020-04-12 22:53 | CON ---
DATE OF CONSULTATION: 04/12/2020 HISTORY: Keya Clinton is a 54-year-old female. She is followed by me with severe COPD. She quit smoking many years ago and has been amazingly stable considering the severity of her lung disease. She developed symptoms of COVID last week, was diagnosed as having a positive test. Her main complaint now is nausea. I have increased the dose of Zofran today to see if that helps. Phenergan works better, she says. PHYSICAL EXAMINATION: VITAL SIGNS: She is afebrile, heart rate is in the 60s, respiratory rate 16, oximetry is 96% on 1.5 L, and blood pressure 110/82. LUNGS: Clear. HEART: Regular rhythm. ABDOMEN: Soft. IMPRESSION: Persistent COVID symptoms. I suspect the nausea and vomiting are related to COVID. Hopefully, these will resolve soon. She is clinically stable enough where she could be managed at home, if these symptoms do resolve. This is a 50 min visit with greater than 50% of the time spent on the unit with coordination of care. Job ID: [id number] MTDD
[2020-04-13] MEDS: Promethazine HCl 12.5 MG in Sodium Chloride 0.9% 50 ML IVPB PRN (01:05)
[2020-04-13] MEDS: diphenhydrAMINE 50 MG/ML VIAL IVP PRN ×2 (04:59→11:13)
[2020-04-13] MEDS: Albuterol 200 PUFF (6.7GM INHALER) INH SCH ×4 (05:00→18:34)
[2020-04-13 05:36] LABS: Band 1 % (5-11); Hemoglobin 12.7 g/dL (12.0-16.0); Lymphocytes 8 % (21-51); MDiff Complete? YES; Mean Corpuscular HGB CONC 32.6 g/dL (32.0-36.0); Mean Corpuscular Hemoglobin 29.4 pg (27.0-31.0); Mean Corpuscular Volume 90.1 fL (78.0-98.0); Mean Platelet Volume 9.2 fL (7.4-10.4); Monocytes 15 % (0-10); Neutrophil 76 % (42-75); Platelet Count 187 thou/uL (130-400); Platelet Morphology Comment Appears Adequate; RBC Morphology Normal; Red Blood Cell (RBC) Count 4.32 mill/uL (4.20-5.40); White Blood Cell (WBC) Count 7.2 thou/uL (4.8-10.8)
[2020-04-13 05:37] LABS: ALT (SGPT) 127 U/L (8-55); AST (SGOT) 189 U/L (5-34); Albumin 3.3 g/dL (3.5-5.0); Alkaline Phosphatase 58 U/L (40-110); Anion Gap 13 mmol/L (10-20); BUN (Urea Nitrogen) 18 mg/dL (9.8-20.1); Bilirubin, Total 0.3 mg/dL (0.2-1.2); CRP (Inflammatory) 0.71 mg/dL (= or < 0.5); Calc. Creatinine Clearance 74 mL/min (70-130); Calcium 8.3 mg/dL (7.8-10.44); Carbon Dioxide 34 mmol/L (22-29); Chloride 99 mmol/L (98-107); Estimated GFR-MDRD 82; Globulin 2.6 g/dL (2.4-3.5); Glucose 81 mg/dL (70-105); Protein, Total 5.9 g/dL (6.0-8.3); Sodium 142 mmol/L (136-145)
[2020-04-13] MEDS: Ondansetron PF 4 MG/2 ML Vial IVP PRN (06:37)
[2020-04-13] MEDS: Dexamethasone 4 MG TAB PO SCH (08:02)
[2020-04-13] MEDS: Mometasone 100 MCG/PUFF (1 INHALER) INH SCH ×2 (08:02→20:36)
[2020-04-13] MEDS: Enoxaparin Sodium 60 MG/0.6 ML SYRINGE SC SCH ×2 (08:02→20:33)
[2020-04-13] MEDS: Ascorbic Acid 500 mg Chewable Tablet PO SCH (08:03)
[2020-04-13] MEDS: Ondansetron ODT 8 MG TAB SL SCH ×4 (08:03→20:35)
[2020-04-13] MEDS: Famotidine 20 MG TAB PO SCH ×2 (08:03→20:34)
[2020-04-13] MEDS: Estradiol 1 MG TAB PO SCH (08:03)
[2020-04-13] MEDS ORDERED: Dextrose 5 % And 0.9 % NaCl 1,000 ML IV SCH (10:45)
[2020-04-13] MEDS ORDERED: Metoclopramide HCl 10 MG/2 ML VIAL IVP PRN (14:56)
[2020-04-13] MEDS ORDERED: Metoclopramide HCl 10 MG/2 ML VIAL IVP SCH (15:00)
--- NOTE | 2020-04-13 15:12 | PRG ---
DATE OF SERVICE: 04/13/2020 Keya Clinton still has a lot of nausea. She had no fever. She is a little short of breath, but no worse than yesterday. She is afebrile. Heart rate is in the 60s, respiratory rates in the teens, oximetry is 100% on a liter and a half, blood pressure 107/67. She did nausea. She could probably be managed at home. to see if this helps with her nausea. Job ID: [id number]
--- NOTE | 2020-04-13 16:38 | PDOC.HOSPP ---
- Subjective Encounter Date: 04/13/20 Encounter Time: 09:00 Subjective: Patient seen for follow-up regarding hypoxic respiratory failure. Complains of ongoing nausea. Denies chest pain. - Objective Vital Signs & Weight: Vital Signs (12 hours) Temp Pulse Resp BP BP BP BP 04/13/20 15:06 98.5 F 93 17 127/79 04/13/20 13:23 04/13/20 11:30 97.6 F 62 16 107/67 04/13/20 08:18 98.2 F 64 14 103/57 L 04/13/20 08:10 04/13/20 04:50 98.3 F 62 18 109/57 L Pulse Ox 04/13/20 15:06 92 L 04/13/20 13:23 100 04/13/20 11:30 100 04/13/20 08:18 96 04/13/20 08:10 96 04/13/20 04:50 98 Weight Admit Weight 119 lb 11.2 oz Weight 111 lb 4.8 oz I&O: 04/12/20 04/13/20 04/14/20 06:59 06:59 06:59 Intake Total 1200 370 Balance 1200 370 Result Diagrams: 04/13/20 05:01 04/13/20 05:01 Additional Labs: I reviewed patient's labs and MAR EKG Reviewed by me: Yes (Normal sinus rhythm on telemetry) Hospitalist ROS - Review of Systems Cardiovascular: denies: chest pain, palpitations, orthopnea, paroxysmal noc. dyspnea, edema, light headedness Gastrointestinal: reports: nausea Genitourinary: denies: dysuria, frequency, incontinence, hematuria, retention - Medication Medications: Active Medications Generic Name Dose Route Start Last Admin Trade Name Freq PRN Reason Stop Dose Admin Acetaminophen 650 mg 04/09/20 13:51 04/09/20 17:27 Acetaminophen 325 Mg Tab PO 650 mg Q4H PRN Administration Headache/Fever/Mild Pain (1-3) Albuterol Sulfate 2 puff 04/09/20 19:00 04/13/20 12:40 Albuterol 200 Puff (6.7gm Inhaler) INH 2 puff [id number] SARAH Administration Ascorbic Acid 1,000 mg 04/11/20 09:00 04/13/20 08:03 Ascorbic Acid 500 Mg Chewable Tablet PO Not Given DAILY SARAH Dexamethasone 6 mg 04/10/20 08:00 04/13/20 08:02 Dexamethasone 4 Mg Tab PO 04/18/20 08:01 6 mg QAM-WM SARAH Administration Diphenhydramine HCl 25 mg 04/11/20 21:00 04/12/20 23:03 Diphenhydramine 25 Mg Cap PO 25 mg HS SARAH Administration Diphenhydramine HCl 25 mg 04/12/20 13:56 04/13/20 11:13 Diphenhydramine 50 Mg/Ml Vial IVP 25 mg Q6H PRN Administration Nausea Enoxaparin Sodium 60 mg 04/09/20 21:00 04/13/20 08:02 Enoxaparin Sodium 60 Mg/0.6 Ml Syringe SC 60 mg BID SARAH Administration Estradiol 1 mg 04/10/20 09:00 04/13/20 08:03 Estradiol 1 Mg Tab PO 1 mg QAM SARAH Administration Famotidine 20 mg 04/09/20 21:00 04/13/20 08:03 Famotidine 20 Mg Tab PO 20 mg BID SARAH Administration Promethazine HCl 12.5 mg/ 50.5 mls @ 202 mls/hr 04/10/20 23:01 04/13/20 01:05 Sodium Chloride IVPB 50.5 mls Q6H PRN Administration Nausea/Vomiting Metoclopramide HCl 10 mg 04/13/20 15:00 04/13/20 14:58 Metoclopramide Hcl 10 Mg/2 Ml Vial IVP 04/13/20 17:00 10 mg NOW SARAH Administration Mometasone Furoate 100 mcg 04/09/20 21:00 04/13/20 08:02 Mometasone 100 Mcg/Puff (1 Inhaler) INH 100 mcg BID SARAH Administration Montelukast Sodium 10 mg 04/10/20 21:00 04/12/20 21:56 Montelukast Sodium 10 Mg Tablet PO 10 mg HS SARAH Administration Ondansetron HCl 4 mg 04/09/20 13:51 04/10/20 18:32 Ondansetron Odt 4 Mg Tab PO 4 mg Q6H PRN Administration Nausea/Vomiting Ondansetron HCl 4 mg 04/09/20 13:51 04/13/20 06:37 Ondansetron Pf 4 Mg/2 Ml Vial IVP 4 mg Q6H PRN Administration Nausea/Vomiting Ondansetron HCl 8 mg 04/12/20 13:00 04/13/20 12:40 Ondansetron Odt 8 Mg Tab SL 8 mg QID SARAH Administration Pregabalin 75 mg 04/09/20 21:00 04/12/20 21:57 Pregabalin 75 Mg Cap PO 75 mg QPM SARAH Administration Sodium Chloride 0 ml 04/12/20 09:35 04/12/20 10:21 Sodium Chloride 0.65% Nasal 44 Ml Bot EA NARE 1 spray TID PRN Administration Nasal Congestion - Exam General Appearance: awake alert Eye: anicteric sclera ENT: moist mucosa Neck: supple Heart: RRR Respiratory: CTAB Gastrointestinal: soft, non-tender Extremities: no edema Skin: no lesions Musculoskeletal: no muscle wasting Psychiatric: normal affect, normal behavior Hosp A/P (1) Acute on chronic respiratory failure with hypoxia Code(s): J96.21 - ACUTE AND CHRONIC RESPIRATORY FAILURE WITH HYPOXIA Status: Acute (2) COVID-19 virus infection Code(s): U07.1 - COVID-19 Status: Acute (3) Pulmonary embolism Code(s): I26.99 - OTHER PULMONARY EMBOLISM WITHOUT ACUTE COR PULMONALE Status: Acute (4) Pulmonary nodule Code(s): R91.1 - SOLITARY PULMONARY NODULE Status: Acute (5) COPD exacerbation Code(s): J44.1 - CHRONIC OBSTRUCTIVE PULMONARY DISEASE W (ACUTE) EXACERBATION Status: Acute - Plan Continue dexamethasone and vitamin C. Patient refused remdesivir. Trial Reglan for nausea. Continue therapeutic Lovenox for pulmonary embolism. Continue bronchodilators, oxygen. Further work-up of lung nodule as outpatient. Patient may need home oxygen as well as home health at the time of discharge.
[2020-04-13] MEDS: Pregabalin 75 MG CAP PO SCH (20:34)
[2020-04-13] MEDS: diphenhydrAMINE 25 MG CAP PO SCH (20:34)
[2020-04-13] MEDS: Montelukast Sodium 10 mg Tablet PO SCH (20:35)
[2020-04-14] MEDS: Albuterol 200 PUFF (6.7GM INHALER) INH SCH ×5 (01:12→16:52)
[2020-04-14] MEDS: diphenhydrAMINE 50 MG/ML VIAL IVP PRN ×4 (01:12→23:06)
[2020-04-14] MEDS: Ondansetron ODT 4 MG TAB PO PRN (04:47)
[2020-04-14 05:11] LABS: ALT (SGPT) 133 U/L (8-55); AST (SGOT) 116 U/L (5-34); Albumin 3.4 g/dL (3.5-5.0); Alkaline Phosphatase 60 U/L (40-110); Anion Gap 15 mmol/L (10-20); BUN (Urea Nitrogen) 23 mg/dL (9.8-20.1); Bilirubin, Total 0.3 mg/dL (0.2-1.2); Calc. Creatinine Clearance 77 mL/min (70-130); Calcium 8.3 mg/dL (7.8-10.44); Carbon Dioxide 33 mmol/L (22-29); Chloride 100 mmol/L (98-107); Estimated GFR-MDRD Greater than 90; Globulin 2.6 g/dL (2.4-3.5); Glucose 74 mg/dL (70-105); Potassium 3.5 mmol/L (3.5-5.1); Sodium 144 mmol/L (136-145)
[2020-04-14 05:23] LABS: Band 2 % (5-11); Hemoglobin 12.8 g/dL (12.0-16.0); Lymphocytes 22 % (21-51); MDiff Complete? YES; Mean Corpuscular HGB CONC 32.6 g/dL (32.0-36.0); Mean Corpuscular Hemoglobin 29.9 pg (27.0-31.0); Mean Corpuscular Volume 91.9 fL (78.0-98.0); Monocytes 11 % (0-10); Neutrophil 65 % (42-75); Platelet Count 205 thou/uL (130-400); Platelet Morphology Comment Appears Adequate; Red Blood Cell (RBC) Count 4.29 mill/uL (4.20-5.40); White Blood Cell (WBC) Count 5.7 thou/uL (4.8-10.8)
[2020-04-14] MEDS: Enoxaparin Sodium 60 MG/0.6 ML SYRINGE SC SCH (08:14)
[2020-04-14] MEDS: Dexamethasone 4 MG TAB PO SCH (08:14)
[2020-04-14] MEDS: Famotidine 20 MG TAB PO SCH ×2 (08:15→20:01)
[2020-04-14] MEDS: Estradiol 1 MG TAB PO SCH (08:15)
[2020-04-14] MEDS: Mometasone 100 MCG/PUFF (1 INHALER) INH SCH ×2 (08:15→20:03)
[2020-04-14] MEDS: Ondansetron ODT 8 MG TAB SL SCH ×2 (08:15→12:33)
[2020-04-14] MEDS: Ascorbic Acid 500 mg Chewable Tablet PO SCH (08:33)
[2020-04-14 11:16] VITALS: BMI 20.3
[2020-04-14] MEDS ORDERED: diphenhydrAMINE 25 MG CAP PO PRN (11:16)
[2020-04-14] MEDS ORDERED: Ondansetron HCl/PF 8 MG in Sodium Chloride 0.9% 50 ML IVPB PRN (14:28)
[2020-04-14] MEDS ORDERED: Prochlorperazine Edisylate 10 MG in Sodium Chloride 0.9% 50 ML IVPB PRN (14:30)
--- NOTE | 2020-04-14 15:17 | PRG ---
DATE OF SERVICE: 04/14/2020 Keya Clinton still extremely nauseated. I have put in an order for Compazine to see if this helps. The Reglan did not help at all. Remainder of her condition is unchanged. We will continue to follow. she could probably be managed at home with nasal cannula oxygen, nebulizer treatment, steroids, anticoagulants, baby aspirin, vitamin C, and zinc. Job ID: [id number]
--- NOTE | 2020-04-14 16:50 | PDOC.HOSPP ---
- Subjective Encounter Date: 04/14/20 Encounter Time: 08:30 Subjective: Patient seen for follow-up for acute hypoxic respiratory failure. Reports ongoing nausea. Denies fevers or chills. - Objective Vital Signs & Weight: Vital Signs (12 hours) Temp Pulse Resp BP BP Pulse Ox 04/14/20 08:33 97.6 F 88 20 113/73 95 04/14/20 08:31 95 04/14/20 04:50 97.9 F 71 15 100/61 95 Weight Admit Weight 119 lb 11.2 oz Weight 111 lb 4.8 oz I&O: 04/13/20 04/14/20 04/15/20 06:59 06:59 06:59 Intake Total 370 365 60 Balance 370 365 60 Result Diagrams: 04/14/20 04:15 04/14/20 04:15 Additional Labs: Labs and MAR reviewed by me EKG Reviewed by me: Yes (Telemetry shows normal sinus rhythm) Hospitalist ROS - Review of Systems Cardiovascular: denies: chest pain, palpitations, orthopnea, paroxysmal noc. dyspnea, edema, light headedness Gastrointestinal: reports: nausea. denies: vomiting, abdominal pain, diarrhea, constipation, melena, hematochezia - Medication Medications: Active Medications Generic Name Dose Route Start Last Admin Trade Name Freq PRN Reason Stop Dose Admin Acetaminophen 650 mg 04/09/20 13:51 04/09/20 17:27 Acetaminophen 325 Mg Tab PO 650 mg Q4H PRN Administration Headache/Fever/Mild Pain (1-3) Albuterol Sulfate 2 puff 04/09/20 19:00 04/14/20 12:34 Albuterol 200 Puff (6.7gm Inhaler) INH 2 puff [id number] SARAH Administration Ascorbic Acid 1,000 mg 04/11/20 09:00 04/14/20 08:33 Ascorbic Acid 500 Mg Chewable Tablet PO Not Given DAILY SARAH Dexamethasone 6 mg 04/10/20 08:00 04/14/20 08:14 Dexamethasone 4 Mg Tab PO 04/18/20 08:01 6 mg QAM-WM SARAH Administration Diphenhydramine HCl 25 mg 04/11/20 21:00 04/13/20 20:34 Diphenhydramine 25 Mg Cap PO 25 mg HS SARAH Administration Diphenhydramine HCl 25 mg 04/12/20 13:56 04/14/20 10:33 Diphenhydramine 50 Mg/Ml Vial IVP 25 mg Q6H PRN Administration Nausea Enoxaparin Sodium 60 mg 04/09/20 21:00 04/14/20 08:14 Enoxaparin Sodium 60 Mg/0.6 Ml Syringe SC 60 mg BID SARAH Administration Estradiol 1 mg 04/10/20 09:00 04/14/20 08:15 Estradiol 1 Mg Tab PO 1 mg QAM SARAH Administration Famotidine 20 mg 04/09/20 21:00 04/14/20 08:15 Famotidine 20 Mg Tab PO 20 mg BID SARAH Administration Promethazine HCl 12.5 mg/ 50.5 mls @ 202 mls/hr 04/10/20 23:01 04/13/20 01:05 Sodium Chloride IVPB 50.5 mls Q6H PRN Administration Nausea/Vomiting Mometasone Furoate 100 mcg 04/09/20 21:00 04/14/20 08:15 Mometasone 100 Mcg/Puff (1 Inhaler) INH 100 mcg BID SARAH Administration Montelukast Sodium 10 mg 04/10/20 21:00 04/13/20 20:35 Montelukast Sodium 10 Mg Tablet PO 10 mg HS SARAH Administration Ondansetron HCl 4 mg 04/09/20 13:51 04/13/20 06:37 Ondansetron Pf 4 Mg/2 Ml Vial IVP 4 mg Q6H PRN Administration Nausea/Vomiting Pregabalin 75 mg 04/09/20 21:00 04/13/20 20:34 Pregabalin 75 Mg Cap PO 75 mg QPM SARAH Administration Sodium Chloride 0 ml 04/12/20 09:35 04/12/20 10:21 Sodium Chloride 0.65% Nasal 44 Ml Bot EA NARE 1 spray TID PRN Administration Nasal Congestion - Exam General Appearance: awake alert Eye: anicteric sclera ENT: moist mucosa Neck: supple Heart: RRR Respiratory: CTAB Gastrointestinal: soft, non-tender Skin: no rashes Psychiatric: normal affect, normal behavior Hosp A/P (1) Acute on chronic respiratory failure with hypoxia Code(s): J96.21 - ACUTE AND CHRONIC RESPIRATORY FAILURE WITH HYPOXIA Status: Acute (2) COVID-19 virus infection Code(s): U07.1 - COVID-19 Status: Acute (3) Pulmonary embolism Code(s): I26.99 - OTHER PULMONARY EMBOLISM WITHOUT ACUTE COR PULMONALE Status: Acute (4) Pulmonary nodule Code(s): R91.1 - SOLITARY PULMONARY NODULE Status: Acute (5) COPD exacerbation Code(s): J44.1 - CHRONIC OBSTRUCTIVE PULMONARY DISEASE W (ACUTE) EXACERBATION Status: Acute - Plan Continue dexamethasone and vitamin C. Patient refused remdesivir. Administer convalescent plasma. Trial Compazine for nausea. Switch to apixaban for pulmonary embolism. Continue bronchodilators, oxygen. Further work-up of lung nodule as outpatient. Patient may need home oxygen as well as home health at the time of discharge. Like 24 to 48 hours.
[2020-04-14] MEDS: diphenhydrAMINE 25 MG CAP PO SCH (20:01)
[2020-04-14] MEDS: Montelukast Sodium 10 mg Tablet PO SCH (20:01)
[2020-04-14] MEDS: Pregabalin 75 MG CAP PO SCH (20:02)
[2020-04-14] MEDS: Apixaban 5 MG TAB PO SCH (20:02)
[2020-04-15] MEDS: Albuterol 200 PUFF (6.7GM INHALER) INH SCH ×3 (01:36→12:51)
[2020-04-15 05:23] LABS: ALT (SGPT) 107 U/L (8-55); AST (SGOT) 60 U/L (5-34); Albumin 3.5 g/dL (3.5-5.0); Alkaline Phosphatase 56 U/L (40-110); Anion Gap 15 mmol/L (10-20); BUN (Urea Nitrogen) 29 mg/dL (9.8-20.1); Bilirubin, Total 0.3 mg/dL (0.2-1.2); CRP (Inflammatory) 1.95 mg/dL (= or < 0.5); Calc. Creatinine Clearance 79 mL/min (70-130); Calcium 8.5 mg/dL (7.8-10.44); Carbon Dioxide 32 mmol/L (22-29); Chloride 99 mmol/L (98-107); Estimated GFR-MDRD Greater than 90; Globulin 2.6 g/dL (2.4-3.5); Glucose 68 mg/dL (70-105); Potassium 3.4 mmol/L (3.5-5.1); Protein, Total 6.1 g/dL (6.0-8.3); Sodium 143 mmol/L (136-145)
[2020-04-15 05:41] LABS: Band 5 % (5-11); Hemoglobin 12.4 g/dL (12.0-16.0); Lymphocytes 22 % (21-51); MDiff Complete? YES; Mean Corpuscular HGB CONC 32.1 g/dL (32.0-36.0); Mean Corpuscular Hemoglobin 29.1 pg (27.0-31.0); Mean Corpuscular Volume 90.6 fL (78.0-98.0); Mean Platelet Volume 8.7 fL (7.4-10.4); Monocytes 11 % (0-10); Neutrophil 62 % (42-75); Platelet Count 232 thou/uL (130-400); RBC Distribution Width 11.9 % (11.5-14.5); Red Blood Cell (RBC) Count 4.27 mill/uL (4.20-5.40); White Blood Cell (WBC) Count 7.4 thou/uL (4.8-10.8)
[2020-04-15] MEDS: diphenhydrAMINE 50 MG/ML VIAL IVP PRN ×2 (06:04→12:38)
[2020-04-15] MEDS: Dexamethasone 4 MG TAB PO SCH (07:22)
[2020-04-15] MEDS: Apixaban 5 MG TAB PO SCH (07:23)
[2020-04-15] MEDS: Estradiol 1 MG TAB PO SCH (07:23)
[2020-04-15] MEDS: Famotidine 20 MG TAB PO SCH (07:23)
[2020-04-15] MEDS: Mometasone 100 MCG/PUFF (1 INHALER) INH SCH (07:24)
[2020-04-15] MEDS: Ascorbic Acid 500 mg Chewable Tablet PO SCH (07:24)
[2020-04-15 07:36] VITALS: TEMP 97.8
--- NOTE | 2020-04-15 10:24 | PRG ---
DATE OF SERVICE: 04/15/2020 SUBJECTIVE: Keya Clinton actually said improvement of her gas exchange. On room air, she is 92%. For the first time, she slept without nausea. She says the only thing that is working is Benadryl. Remainder of her exam is unchanged. Her abdomen is nontender. IMPRESSION: Nausea secondary to coronavirus disease. CBC is normal today. Electrolytes are unremarkable except for potassium of 3.4. She remains with good gas exchange on room air. She could go home to ride this out at home in my opinion. She should get Eliquis, but I will reduce her dose to 5 mg twice a day. She takes a baby aspirin. She should have a 2-3 weeks taper of prednisone. She should continue with her nebulizer at home and Benadryl for nausea as well as vitamin C. Job ID: [id number]
[2020-04-15] MEDS ORDERED: Potassium Chloride 20 MEQ TAB PO SCH (12:30)
[2020-04-15 13:20] VITALS: BP 125/78
--- NOTE | 2020-04-15 14:06 | PDOC.DS.DS ---
Provider - Provider Date of Admission: 04/09/20 13:22 Date of Discharge: 04/15/20 Admitting Provider: Valeriano Saxena MD Consultations: Pulmonary (Dr. Drew) Primary Care Physician: Jose Angel Linares, Course - Hospital Course Hospital Course: Discharge diagnoses: 1. COVID-19 infection 2. COPD exacerbation 3. Acute hypoxic respiratory failure 4. Bilateral pulmonary emboli 5. Lung nodule, needs work-up as outpatient 6. Hypokalemia 7. Abnormal liver function tests Hospital course: Patient is a pleasant 54-year-old lady who was admitted to the hospital on April 09, 2020 for acute hypoxic respiratory failure secondary to COVID-19 infection and COPD exacerbation. Patient had CT angiogram of the chest at [facility] emergency room in [place], which showed bilateral pulmonary emboli as well as bilateral lung nodules, the nodule in the left lung appears to be new. She was started on dexamethasone and vitamin C. She was also ordered remdesivir but patient refused remdesivir. She was seen by pulmonary and critical care [facility]. She has a new lung nodule that needs further management as outpatient after recovering from her acute illness. I will advise her to follow-up with her primary care provider for the same. On April 14, 2020, she received convalescent plasma. She had severe nausea during this hospitalization, which improved with Benadryl. She also needs to be on 1 and half liters of oxygen. Arrangements are being made for home oxygen. Resuscitation Status: 04/09/20 13:46 Resuscitation Status Routine Resuscitation Status: FULL: Full Resuscitation Discussed with: Patient - Labs Lab Results: 04/15/20 04:47 04/15/20 04:47 Abnormal Lab Results - Last 48 hrs 04/14/20 04:15: Band Neuts % (Manual) 2 L, Monocytes % (Manual) 11 H 04/14/20 04:15: Carbon Dioxide 33 H, BUN 23 H, AST 116 H, ALT 133 H, Albumin 3.4 L 04/15/20 04:47: Potassium 3.4 L, Carbon Dioxide 32 H, BUN 29 H, AST 60 H, ALT 107 H, C-Reactive Protein 1.95 H 04/15/20 04:47: Monocytes % (Manual) 11 H - Physical Exam Vitals: Vital Signs (12 hours) Temp Pulse Resp BP BP Pulse Ox 04/15/20 13:19 84 20 125/78 95 04/15/20 07:36 92 L 04/15/20 07:34 97.8 F 75 20 120/71 95 04/15/20 03:17 98.1 F 56 L 16 102/57 L 96 Weight Admit Weight 119 lb 11.2 oz Weight 111 lb 4.8 oz Physical Exam: The patient was seen and examined on the day of discharge. Patient denies chest pain or shortness of breath. Vital signs are stable. S1 and S2 are heard. Lungs are clear to auscultation bilaterally. Problem - Problem (1) Acute on chronic respiratory failure with hypoxia Code(s): J96.21 - ACUTE AND CHRONIC RESPIRATORY FAILURE WITH HYPOXIA Status: Acute (2) COVID-19 virus infection Code(s): U07.1 - COVID-19 Status: Acute (3) Pulmonary embolism Code(s): I26.99 - OTHER PULMONARY EMBOLISM WITHOUT ACUTE COR PULMONALE Status: Acute (4) Pulmonary nodule Code(s): R91.1 - SOLITARY PULMONARY NODULE Status: Acute (5) COPD exacerbation Code(s): J44.1 - CHRONIC OBSTRUCTIVE PULMONARY DISEASE W (ACUTE) EXACERBATION Status: Acute - Time spent with Patient (mins): 31 Plan - Discharge Medications Prescriptions: diphenhydrAMINE [Benadryl] 25 mg PO Q8HR #20 tab Dexamethasone 6 mg PO DAILY #3 tablet Apixaban [Eliquis] 5 mg PO BID #60 tablet predniSONE 20 mg PO ASDIR #16 tab Ascorbic Acid [Vitamin C] 1,000 mg PO DAILY #30 tablet Home Medications: Medication Instructions Recorded Confirmed Type Montelukast Sodium [Singulair] 10 mg PO QAM 05/02/13 04/09/20 History Budesonide [Pulmicort Neb Solution] 0.5 mg NEB BID 06/16/13 04/09/20 History Albuterol Sulfate [Albuterol 2 puff IH Q6HR PRN 06/01/14 04/09/20 History Sulfate HFA] Pregabalin [Lyrica] 150 mg PO QPM 06/01/14 04/09/20 History Estradiol 1 mg PO QAM 02/27/17 04/09/20 History diphenhydrAMINE [Benadryl] 25 mg PO HS 02/27/17 04/09/20 History Fluticasone/Vilanterol [Breo 1 each IH DAILY 04/09/20 04/09/20 History Ellipta 200-25 Mcg INH] Ipratropium/Albuterol Sulfate 3 ml NEB QID 04/09/20 04/09/20 History [Duoneb] Multivitamin 1 each PO DAILY 04/09/20 04/09/20 History Apixaban [Eliquis] 5 mg PO BID #60 tablet 04/15/20 Rx Ascorbic Acid [Vitamin C] 1,000 mg PO DAILY #30 tablet 04/15/20 Rx Dexamethasone 6 mg PO DAILY #3 tablet 04/15/20 Rx diphenhydrAMINE [Benadryl] 25 mg PO Q8HR #20 tab 04/15/20 Rx predniSONE 20 mg PO ASDIR #16 tab 04/15/20 Rx Allergies: formoterol fumarate [From Symbicort] Allergy (Severe, Verified 04/09/20 15:12) DIFFICULTY BREATHING. "LUNGS JUST CLOSE UP" hydrocodone bitartrate [From Vicodin] Allergy (Severe, Verified 04/09/20 15:12) Hives STATES HAS MEDICINE INDUCED LUPUS. iodine Allergy (Verified 04/09/20 15:12) Swollen Lips FACIAL SWELLING. TOPICAL ONLY levalbuterol HCl [From Xopenex] Allergy (Verified 04/09/20 15:12) DIFFICULTY BREATHING. "LUNGS JUST CLOSE UP" - Discharge Instructions Discharge Instructions:: Follow-up with primary care provider for management of new lung nodule. elementary supervisor prescriptions at [facility] - Follow up Plan Referrals: Jose Angel Linares MD [Primary Care Provider] - (call for appointment ) James Drew MD [Active] - 2-3 Weeks KRISTEL CLIFFORD [ Not on Staff] - 3 Days Disposition: HOME Quality - Care Measures CORE MEASURES:: N/A
[2020-04-21] MEDS ORDERED: Apixaban 5 MG TAB PO SCH (21:00)
== END 2020-04-15 19:19 | disposition home or self-care (01) | DRG 177 ==
LOC: ERS 11:51 → ERHOLD 13:22 → 2SW 15:05
PROVIDERS: ADMIT Emergency Medicine; ATTEND Internal Medicine
PROC: 8E0ZXY6 Isolation (ICD-10-PCS; 2020-04-09)
PROC: XW13325 Transfusion of Convalescent Plasma (Nonautologous) into Peripheral Vein, Percutaneous Approach, New Technology Group 5 (ICD-10-PCS; principal; 2020-04-14)
DX: U07.1 COVID-19 (principal); I26.99 Other pulmonary embolism without acute cor pulmonale; J96.21 Acute and chronic respiratory failure with hypoxia; J12.89 Other viral pneumonia; J44.1 Chronic obstructive pulmonary disease with (acute) exacerbation; J44.0 Chronic obstructive pulmonary disease with (acute) lower respiratory infection; R91.1 Solitary pulmonary nodule; Z98.890 Other specified postprocedural states; Z90.710 Acquired absence of both cervix and uterus; Z87.891 Personal history of nicotine dependence; Z88.6 Allergy status to analgesic agent; Z88.8 Allergy status to other drugs, medicaments and biological substances; Z79.899 Other long term (current) drug therapy; Z79.51 Long term (current) use of inhaled steroids; E87.6 Hypokalemia; R79.89 Other specified abnormal findings of blood chemistry
CPT/HCPCS: 36415; 36416; 36430; 80048; 80053; 80076; 82728; 83615; 84484; 85025; 85379; 86140; 86850; 86900; 86901; 93005; J0780; J1100; J1200; J1650; J2270; J2405; J2550; J2765; J7050; J8540; P9017; Q0162; Q0163

== ENCOUNTER 2020-06-03 12:39 | Outpatient (CLI) | payer MEDICARE, MEDICAID ==
--- NOTE | 2020-06-03 14:00 | ULT ---
EXAM: US Breast Limited Rt PROVIDED CLINICAL HISTORY: Abnormal screening mammogram COMPARISON: Screening mammogram 05/05/2020 FINDINGS: Limited sonographic interrogation was performed of the right breast at the 12:00 position in the [place] on of mammographic concern. There is a 1.6 cm circumscribed anechoic cyst with enhanced through transmission corresponding to the mammogram finding. No concerning sonographic findings are evident. IMPRESSION: Mammogram abnormality corresponds to a simple cyst. No concerning findings are evident. Return to [facility]. BI-RADS 2 -- benign findings
--- NOTE | 2020-06-03 14:02 | ULT ---
EXAM: US Breast Limited Lt PROVIDED CLINICAL HISTORY: Abnormal screening mammogram COMPARISON: Screening mammogram 05/05/2020 FINDINGS: Limited sonographic interrogation of the left breast was performed at the 9:00 position in the region of mammographic concern. There is an oval circumscribed nearly anechoic mass with enhanced through transmission measuring approximately 1 cm. No concerning sonographic findings are evident. IMPRESSION: Simple cyst corresponds to the mammographic finding. No concerning sonographic findings are evident. Return to screening. BI-RADS 2 -- benign findings
== END 2020-06-03 12:40 | disposition home or self-care (01) ==
LOC: BICULT 12:39
PROVIDERS: ATTEND Family Medicine Addiction Medicine
DX: R92.8 Other abnormal and inconclusive findings on diagnostic imaging of breast (principal); N60.01 Solitary cyst of right breast; N60.02 Solitary cyst of left breast

== ENCOUNTER 2020-06-29 10:05 | Outpatient (CLI) | payer MEDICARE, MEDICAID ==
--- NOTE | 2020-06-29 10:55 | CT ---
CT OF THE THORAX WITHOUT IV CONTRAST INDICATION: History of Covid 19 and pulmonary nodules COMPARISON: CTA of the chest dated April 09, [address] of the chest without contrast dated Jan FINDINGS: LUNGS: The area of peripheral airspace groundglass opacity within the right and left lower lobe have intervally resolved. No focal infiltrate is evident. Small pulmonary nodules within the right lower lobe is stable since 2014. Small pulmonary nodule within the right middle lobe is stable since 2014 a nd 9. Severe bullous and centrilobular emphysema is stable. Pleural spaces: Clear Lymph nodes: No pathologically enlarged lymph nodes. Heart and great vessels: There are mild coronary artery and thoracic aortic calcifications. Upper abdomen: Visualized aspects of the upper abdomen appear within normal limits. Osseous structures: No acute osseous abnormality. IMPRESSION: 1. Interval resolution of the peripheral airspace opacities affecting both lower lobes on the compari son outside CT PE examination dated April 09, 2020 consistent with resolved pneumonia. No residual airspace disease is evident. 2. Stable benign pulmonary nodules within the right middle lobe right lower lobe. 3. Stable severe emphysema.
== END 2020-06-29 10:06 | disposition home or self-care (01) ==
LOC: BICCT 10:05
PROVIDERS: ATTEND Internal Medicine Critical Care Medicine
DX: U07.1 COVID-19 (principal); R91.8 Other nonspecific abnormal finding of lung field; J43.9 Emphysema, unspecified
CPT/HCPCS: 71250

== ENCOUNTER 2021-07-24 11:19 | Outpatient (CLI) | payer MEDICARE, MEDICAID | END 2021-07-24 11:20 | disposition home or self-care (01) | LOC: BICMAMMO 11:19 | PROVIDERS: ATTEND Family Medicine Addiction Medicine | DX: Z12.31 Encounter for screening mammogram for malignant neoplasm of breast (principal); Z91.89 Other specified personal risk factors, not elsewhere classified | CPT/HCPCS: 77063; 77067 ==

== ENCOUNTER 2022-01-02 09:40 | Outpatient (CLI) | payer MEDICARE, MEDICAID | END 2022-01-02 09:41 | disposition home or self-care (01) | LOC: RAD 09:40 | PROVIDERS: ATTEND Internal Medicine Critical Care Medicine | DX: R06.00 Dyspnea, unspecified (principal) | CPT/HCPCS: 71046 ==

== ENCOUNTER 2022-02-14 10:15 | Inpatient (IN) | payer MEDICARE, MEDICAID ==
[2022-02-12 13:41] VITALS: BMI 21.4
[2022-02-14] MEDS ORDERED: Bupivacaine 0.25% HCL 30 ML VIAL ONE (11:45)
[2022-02-14] MEDS ORDERED: Midazolam HCl 2 mg/2 ml Vial ONE (11:45)
[2022-02-14] MEDS ORDERED: fentaNYL Citrate/PF 100 MCG/2 ML SYRINGE ONE ×2 (13:07→16:08)
[2022-02-14] MEDS ORDERED: HYDROmorphone 2 MG/ML VIAL ONE (13:08)
[2022-02-14] MEDS ORDERED: ceFOXitin 1 GM VIAL ONE (13:50)
[2022-02-14] MEDS ORDERED: cefOXitin 2 GM VIAL ONE (13:52)
[2022-02-14] MEDS ORDERED: Sodium Chloride 0.9% 100 ML ONE (13:52)
[2022-02-14] MEDS ORDERED: Rocuronium Bromide 10 MG/ML (10ML VIAL) ONE (14:05)
[2022-02-14] MEDS ORDERED: PROPOFOL 200 MG/20 ML VIAL ONE (14:05)
[2022-02-14] MEDS ORDERED: Dexamethasone 20 MG/5 ML VIAL ONE (14:05)
[2022-02-14] MEDS ORDERED: Ondansetron PF 4 MG/2 ML Vial ONE (14:05)
[2022-02-14] MEDS ORDERED: NEOSTIGMINE 3 MG/3 ML SYR 3 MG/3 ML SYRINGE ONE (14:05)
[2022-02-14] MEDS ORDERED: Bupivacaine PF 0.5% 30 ML VIAL ONE (14:05)
[2022-02-14] MEDS ORDERED: Phenylephrine 10 MG/ML VIAL ONE (14:05)
[2022-02-14] MEDS ORDERED: Glycopyrrolate 0.2 MG/ML 5 ML SYRINGE ONE (14:05)
[2022-02-14] MEDS ORDERED: Ketorolac Tromethamine 30 MG/ML VIAL ONE (14:05)
[2022-02-14] MEDS ORDERED: Ondansetron HCl/PF 4 MG/2 ML Vial IVP PRN (16:19)
[2022-02-14] MEDS ORDERED: Zolpidem Tartrate 5 MG TAB PO PRN (16:19)
[2022-02-14] MEDS ORDERED: Promethazine HCl 25 MG/ML VIAL IVPB PRN (16:19)
[2022-02-14] MEDS ORDERED: diphenhydrAMINE 25 MG CAP PO PRN (16:19)
[2022-02-14] MEDS ORDERED: Naloxone HCl 0.4 mg/ml Vial IV PRN (16:19)
[2022-02-14] MEDS ORDERED: diphenhydrAMINE 50 MG/ML VIAL IM PRN (16:19)
[2022-02-14] MEDS ORDERED: HYDROmorphone 10 mg/100 ml CADD IVPB PRN (16:19)
[2022-02-14] MEDS ORDERED: Promethazine HCl 25 MG/ML VIAL IM PRN ×3 (16:19→16:28)
[2022-02-14] MEDS ORDERED: Ondansetron PF 4 MG/2 ML Vial IVP PRN (16:19)
[2022-02-14] MEDS ORDERED: PACU-Morphine 4MG/ML VIAL SLOW IVP PRN (16:20)
[2022-02-14] MEDS ORDERED: HYDROmorphone 2 MG/ML VIAL SLOW IVP PRN (16:20)
[2022-02-14] MEDS ORDERED: hydrALAZINE 20 MG/ML VIAL SLOW IVP PRN (16:28)
[2022-02-14] MEDS ORDERED: Communication Order-Pharmacy FS SCH (16:30)
[2022-02-14] MEDS ORDERED: HYDROmorphone 0.5 MG/0.5 ML SYRINGE ONE ×3 (16:33→16:57)
[2022-02-14] MEDS ORDERED: HYDROmorphone/PF 10 MG in Sodium Chloride 0.9% 99 ML IVPB ONE (16:45)
[2022-02-14] MEDS ORDERED: diphenhydrAMINE 50 MG/ML VIAL ONE (17:21)
[2022-02-14] MEDS ORDERED: Albuterol Sulfate 2.5 mg/3 ml Neb NEB PRN (17:38)
[2022-02-14] MEDS: Budesonide 0.5 MG/2 ML NEB NEB SCH (18:53)
[2022-02-14] MEDS: D5 1/2 NS w/20 mEq KCL 1,000 ML IV SCH (18:54)
[2022-02-14] MEDS: Famotidine 20 MG TAB PO SCH (21:03)
[2022-02-14] MEDS: diphenhydrAMINE 50 MG/ML VIAL IVP PRN (21:03)
[2022-02-14] MEDS: Pregabalin 75 MG CAP PO SCH (21:03)
[2022-02-14] MEDS: Famotidine/PF 20 mg/2ml Vial SLOW IVP SCH (21:09)
[2022-02-14] MEDS: Ondansetron PF 4 MG/2 ML Vial IVP PRN (22:11)
[2022-02-14] MEDS: cefOXitin Sodium 1 GM in Sodium Chloride 0.9% 100 ML IVPB SCH (22:11)
[2022-02-15 05:50] LABS: #Lymphocytes 0.5 thou/uL (1.20-3.40); #Monocytes 1.1 thou/uL (0.11-0.59); #Neutrophils 14.5 thou/uL (1.40-6.50); %Lymphocytes 3.1 % (21.0-51.0); %Neutrophils 89.9 % (42.0-75.0); Hemoglobin 10.9 g/dL (12.0-16.0); Mean Corpuscular HGB CONC 31.3 g/dL (32.0-36.0); Mean Corpuscular Hemoglobin 28.9 pg (27.0-31.0); Mean Corpuscular Volume 92.1 fL (78.0-98.0); Mean Platelet Volume 8.2 fL (7.4-10.4); Platelet Count 245 thou/uL (130-400); RBC Distribution Width 12.4 % (11.5-14.5); Red Blood Cell (RBC) Count 3.78 mill/uL (4.20-5.40); White Blood Cell (WBC) Count 16.2 thou/uL (4.8-10.8)
[2022-02-15 06:05] LABS: Anion Gap 14 mmol/L (10-20); BUN (Urea Nitrogen) 9 mg/dL (9.8-20.1); Calc. Creatinine Clearance 63 mL/min (70-130); Calcium 8.4 mg/dL (7.8-10.44); Carbon Dioxide 22 mmol/L (22-29); Chloride 106 mmol/L (98-107); Estimated GFR 84; Glucose 198 mg/dL (70-105); Potassium 4.5 mmol/L (3.5-5.1); Sodium 137 mmol/L (136-145)
[2022-02-15] MEDS: cefOXitin Sodium 1 GM in Sodium Chloride 0.9% 100 ML IVPB SCH (06:09)
[2022-02-15] MEDS: D5 1/2 NS w/20 mEq KCL 1,000 ML IV SCH ×2 (06:09→16:49)
[2022-02-15] MEDS: Budesonide 0.5 MG/2 ML NEB NEB SCH ×2 (06:39→18:39)
[2022-02-15] MEDS: Famotidine/PF 20 mg/2ml Vial SLOW IVP SCH (08:59)
[2022-02-15] MEDS: Enoxaparin Sodium 40 MG/0.4 ML SYRINGE SC SCH (08:59)
[2022-02-15] MEDS: Famotidine 20 MG TAB PO SCH ×2 (08:59→20:48)
[2022-02-15] MEDS: Montelukast Sodium 10 mg Tablet PO SCH (08:59)
[2022-02-15] MEDS ORDERED: Fluticasone/Vilanterol [Breo Ellipta 200-25 Mcg Inh] INH SCH (09:00)
[2022-02-15] MEDS: Pregabalin 75 MG CAP PO SCH (20:48)
[2022-02-15] MEDS: diphenhydrAMINE 50 MG/ML VIAL IVP PRN (22:12)
[2022-02-16] MEDS: diphenhydrAMINE 50 MG/ML VIAL IVP PRN ×3 (01:17→21:00)
[2022-02-16] MEDS: D5 1/2 NS w/20 mEq KCL 1,000 ML IV SCH ×3 (02:00→20:57)
[2022-02-16] MEDS: Famotidine/PF 20 mg/2ml Vial SLOW IVP SCH ×2 (06:17→10:21)
[2022-02-16] MEDS: Budesonide 0.5 MG/2 ML NEB NEB SCH ×2 (06:32→18:27)
[2022-02-16] MEDS ORDERED: Acetaminophen/Codeine 30-300mg Tablet PO PRN (07:51)
[2022-02-16] MEDS: Montelukast Sodium 10 mg Tablet PO SCH (10:20)
[2022-02-16] MEDS: Estradiol 1 MG TAB PO SCH (10:20)
[2022-02-16] MEDS: Famotidine 20 MG TAB PO SCH ×2 (10:20→20:52)
[2022-02-16] MEDS: Enoxaparin Sodium 40 MG/0.4 ML SYRINGE SC SCH (10:21)
[2022-02-16] MEDS: Morphine 4 MG/ML VIAL SLOW IVP PRN ×2 (12:14→23:36)
[2022-02-16] MEDS: Acetaminophen/Codeine 30-300mg Tablet PO PRN ×2 (14:35→20:07)
[2022-02-16] MEDS ORDERED: Ketorolac Tromethamine 30 MG/ML VIAL ONE (17:49)
[2022-02-16] MEDS: Pregabalin 75 MG CAP PO SCH (20:52)
[2022-02-17] MEDS: diphenhydrAMINE 50 MG/ML VIAL IVP PRN ×3 (01:00→18:40)
[2022-02-17] MEDS: Ondansetron PF 4 MG/2 ML Vial IVP PRN ×3 (01:00→18:12)
[2022-02-17] MEDS: Famotidine/PF 20 mg/2ml Vial SLOW IVP SCH ×3 (03:33→21:52)
[2022-02-17] MEDS: Acetaminophen/Codeine 30-300mg Tablet PO PRN ×2 (04:35→10:57)
[2022-02-17] MEDS: D5 1/2 NS w/20 mEq KCL 1,000 ML IV SCH ×3 (04:36→22:28)
[2022-02-17] MEDS: Budesonide 0.5 MG/2 ML NEB NEB SCH ×3 (06:38→18:42)
[2022-02-17] MEDS: Montelukast Sodium 10 mg Tablet PO SCH (10:58)
[2022-02-17] MEDS: Enoxaparin Sodium 40 MG/0.4 ML SYRINGE SC SCH (10:58)
[2022-02-17] MEDS: Famotidine 20 MG TAB PO SCH ×2 (10:59→21:53)
[2022-02-17] MEDS: Estradiol 1 MG TAB PO SCH (11:02)
[2022-02-17] MEDS ORDERED: Sodium Chloride 0.65% Nasal 44 ML BOT EA NARE PRN ×2 (14:21→16:50)
[2022-02-17] MEDS ORDERED: Fluconazole 100 MG TAB PO SCH (18:30)
[2022-02-17] MEDS: Morphine 4 MG/ML VIAL SLOW IVP PRN (21:52)
[2022-02-17] MEDS: Pregabalin 75 MG CAP PO SCH (21:54)
[2022-02-18] MEDS: Morphine 4 MG/ML VIAL SLOW IVP PRN ×4 (03:04→16:28)
[2022-02-18] MEDS: Ondansetron PF 4 MG/2 ML Vial IVP PRN ×2 (03:05→08:36)
[2022-02-18 06:06] LABS: #Eosinphils 0.4 thou/uL (0.0-0.7); #Lymphocytes 1.4 thou/uL (1.20-3.40); #Monocytes 0.8 thou/uL (0.11-0.59); #Neutrophils 3.5 thou/uL (1.40-6.50); %Basophils 0.6 % (0.0-1.0); %Eosinophils 5.9 % (0.0-10.0); %Lymphocytes 22.9 % (21.0-51.0); %Neutrophils 57.6 % (42.0-75.0); Hemoglobin 8.8 g/dL (12.0-16.0); Mean Corpuscular HGB CONC 31.7 g/dL (32.0-36.0); Mean Corpuscular Hemoglobin 29.7 pg (27.0-31.0); Mean Platelet Volume 8.2 fL (7.4-10.4); Platelet Count 215 thou/uL (130-400); RBC Distribution Width 12.2 % (11.5-14.5); Red Blood Cell (RBC) Count 2.97 mill/uL (4.20-5.40); White Blood Cell (WBC) Count 6.1 thou/uL (4.8-10.8)
[2022-02-18 06:23] LABS: Anion Gap 10 mmol/L (10-20); BUN (Urea Nitrogen) 4 mg/dL (9.8-20.1); Calc. Creatinine Clearance 80 mL/min (70-130); Calcium 7.9 mg/dL (7.8-10.44); Carbon Dioxide 31 mmol/L (22-29); Chloride 105 mmol/L (98-107); Estimated GFR 102; Glucose 109 mg/dL (70-105); Magnesium 1.6 mg/dL (1.6-2.6); Potassium 3.7 mmol/L (3.5-5.1); Sodium 142 mmol/L (136-145)
[2022-02-18] MEDS: Budesonide 0.5 MG/2 ML NEB NEB SCH ×2 (07:29→18:31)
[2022-02-18] MEDS: Estradiol 1 MG TAB PO SCH (08:36)
[2022-02-18] MEDS: Famotidine 20 MG TAB PO SCH ×2 (08:36→20:16)
[2022-02-18] MEDS: Enoxaparin Sodium 40 MG/0.4 ML SYRINGE SC SCH (08:36)
[2022-02-18] MEDS: Montelukast Sodium 10 mg Tablet PO SCH (08:36)
[2022-02-18] MEDS: D5 1/2 NS w/20 mEq KCL 1,000 ML IV SCH ×2 (08:37→20:20)
[2022-02-18] MEDS: Famotidine/PF 20 mg/2ml Vial SLOW IVP SCH ×2 (12:35→20:20)
[2022-02-18] MEDS: Acetaminophen/Codeine 30-300mg Tablet PO PRN (20:15)
[2022-02-18] MEDS: Pregabalin 75 MG CAP PO SCH (20:16)
[2022-02-18] MEDS: diphenhydrAMINE 50 MG/ML VIAL IVP PRN (20:17)
[2022-02-19] MEDS: Acetaminophen/Codeine 30-300mg Tablet PO PRN ×2 (06:14→11:50)
[2022-02-19] MEDS: diphenhydrAMINE 50 MG/ML VIAL IVP PRN ×2 (06:15→11:49)
[2022-02-19] MEDS: Budesonide 0.5 MG/2 ML NEB NEB SCH (07:12)
[2022-02-19] MEDS: D5 1/2 NS w/20 mEq KCL 1,000 ML IV SCH (07:25)
[2022-02-19] MEDS: Enoxaparin Sodium 40 MG/0.4 ML SYRINGE SC SCH (08:45)
[2022-02-19] MEDS: Famotidine 20 MG TAB PO SCH (08:46)
[2022-02-19] MEDS: Estradiol 1 MG TAB PO SCH (08:46)
[2022-02-19] MEDS: Montelukast Sodium 10 mg Tablet PO SCH (08:46)
[2022-02-19] MEDS: Famotidine/PF 20 mg/2ml Vial SLOW IVP SCH (08:46)
[2022-02-19] MEDS ORDERED: Furosemide 20 MG/2 ML VIAL SLOW IVP SCH (12:15)
[2022-02-19 15:57] VITALS: BP 111/65; TEMP 97.4
== END 2022-02-19 15:30 | disposition home or self-care (01) | DRG 330 ==
LOC: SURG A 10:15 → EDSTATUS 13:05 → SJJU 17:48
PROVIDERS: ADMIT Surgery; ATTEND Surgery
PROC: 0DBN0ZZ Excision of Sigmoid Colon, Open Approach (ICD-10-PCS; principal; 2022-02-14)
DX: K57.32 Diverticulitis of large intestine without perforation or abscess without bleeding (principal); N82.3 Fistula of vagina to large intestine; J43.9 Emphysema, unspecified; Z20.822 Contact with and (suspected) exposure to COVID-19; K66.0 Peritoneal adhesions (postprocedural) (postinfection); Z79.899 Other long term (current) drug therapy; Z79.82 Long term (current) use of aspirin; Z79.51 Long term (current) use of inhaled steroids; Z87.891 Personal history of nicotine dependence; Z88.8 Allergy status to other drugs, medicaments and biological substances; Z88.5 Allergy status to narcotic agent; Z90.710 Acquired absence of both cervix and uterus; Z87.440 Personal history of urinary (tract) infections; Z88.6 Allergy status to analgesic agent; Z91.041 Radiographic dye allergy status; Z53.31 Laparoscopic surgical procedure converted to open procedure
CPT/HCPCS: 36415; 36416; 80048; 83735; 85025; 88307; 94640; A4649; J0694; J1100; J1170; J1200; J1650; J1885; J1940; J2250; J2270; J2370; J2405; J2550; J2704; J3480; J3490; J7611; J7620; J7626; S0020; U0003; U0005

== ENCOUNTER 2022-12-31 10:21 | Outpatient (CLI) | payer MEDICARE, MEDICAID | END 2022-12-31 10:22 | disposition home or self-care (01) | LOC: RAD 10:21 | PROVIDERS: ATTEND Internal Medicine Critical Care Medicine | DX: R06.00 Dyspnea, unspecified (principal); J43.8 Other emphysema; J34.89 Other specified disorders of nose and nasal sinuses | CPT/HCPCS: 71046 ==

== ENCOUNTER 2023-08-21 11:16 | Outpatient (CLI) | payer MEDICARE, MEDICAID ==
[2023-08-21 13:07] LABS: Hematocrit 41.7 % (34.9-44.5); Hemoglobin 13.6 g/dL (12.0-15.5); Mean Corpuscular HGB CONC 32.6 g/dL (32.0-36.0); Mean Corpuscular Hemoglobin 29.2 pg (27.0-33.0); Mean Corpuscular Volume 89.5 fl (81.6-98.3); Mean Platelet Volume 10.3 fl (7.4-10.4); Platelet Count 290 10x3/uL (150-450); RBC Distribution Width 13.3 % (11.5-14.5); Red Blood Cell (RBC) Count 4.66 10x6/uL (3.90-5.03); White Blood Cell (WBC) Count 6.1 10x3/uL (3.5-10.5)
[2023-08-21 13:16] LABS: INR-International Normal Ratio 0.9; PTT 29.9 sec (22.0-33.0); Prothrombin Time 9.9 sec (9.5-12.1)
[2023-08-21 13:25] LABS: Anion Gap 14 mmol/L (10-20); BUN (Urea Nitrogen) 16 mg/dL (9.8-20.1); Calc. Creatinine Clearance 0 mL/min (70-130); Calcium 9.2 mg/dL (7.8-10.44); Carbon Dioxide 28 mmol/L (22-29); Chloride 104 mmol/L (98-107); Estimated GFR 87; Glucose 75 mg/dL (70-105); Potassium 3.9 mmol/L (3.5-5.1); Sodium 142 mmol/L (136-145)
[2023-08-21 14:34] LABS: Bilirubin Neg (Negative); Blood, Urine 10 (Negative); Glucose, Urine (Dipstick) Normal (Negative); Ketone, Urine 5 mg/dL (Negative); Leukocyte 25 (Negative); Nitrite Negative (Negative); Protein, Urine (Dipstick) Negative (Neg-Trace); Urobilinogen Normal mg/dL (Less than 2)
[2023-08-21 14:35] LABS: Clarity Slightly Cloudy (Clear)
[2023-08-21 15:22] LABS: Squamous Epithelial 0-3 HPF (0-3)
[2023-08-21 15:23] LABS: Bacteria/HPF Rare-Few HPF (None Seen); Calcium Oxalate Crystals 2+ HPF (None Seen)
== END 2023-08-21 11:17 | disposition home or self-care (01) ==
LOC: LABBT 11:16
PROVIDERS: ATTEND Thoracic Surgery (Cardiothoracic Vascular Surgery)
DX: Z01.818 Encounter for other preprocedural examination (principal); N20.1 Calculus of ureter
CPT/HCPCS: 80048; 81001; 85027; 85610; 85730; 87086; 93005; 93010

== ENCOUNTER 2024-03-17 10:23 | Outpatient (CLI) | payer MEDICARE, MEDICAID | END 2024-03-17 10:24 | disposition home or self-care (01) | LOC: RAD 10:23 | PROVIDERS: ATTEND Internal Medicine Critical Care Medicine | DX: R06.00 Dyspnea, unspecified (principal); J43.9 Emphysema, unspecified; L90.5 Scar conditions and fibrosis of skin | CPT/HCPCS: 71046 ==

== ENCOUNTER 2024-11-11 13:12 | Outpatient (CLI) | payer MEDICARE, MEDICAID | END 2024-11-11 13:13 | disposition home or self-care (01) | LOC: BICMAMMO 13:12 | PROVIDERS: ATTEND Family Medicine Addiction Medicine | DX: N63.10 Unspecified lump in the right breast, unspecified quadrant (principal); N63.20 Unspecified lump in the left breast, unspecified quadrant | CPT/HCPCS: 76642; 77065; G0279 ==

== ENCOUNTER 2024-12-08 12:00 | Outpatient (CLI) | payer MEDICARE, MEDICAID ==
[2024-12-08] MEDS ORDERED: Furosemide 40 MG (4 mL) VIAL ONE (12:39)
== END 2024-12-08 12:01 | disposition home or self-care (01) ==
LOC: NM 12:00
PROVIDERS: ATTEND Urology
DX: N13.5 Crossing vessel and stricture of ureter without hydronephrosis (principal)
CPT/HCPCS: 78708; A4314; A4641; J1940

== ENCOUNTER 2025-03-24 10:06 | Outpatient (CLI) | payer MEDICARE, MEDICAID | END 2025-03-24 10:07 | disposition home or self-care (01) | LOC: RAD 10:06 | PROVIDERS: ATTEND Internal Medicine Critical Care Medicine | DX: R06.00 Dyspnea, unspecified (principal) | CPT/HCPCS: 71046 ==